=== PATIENT | female | born 1955 | race Caucasian/White ===

== ENCOUNTER → 2019-12-17 13:44 | Outpatient (CLI) | payer MEDICARE, MEDICAID, SELFPAY ==
--- NOTE | ~2019-12-17 | XR_ITS ---
EXAMINATION: XR ankle RT min 3V DATE: 12/17/2019 14:04 INDICATION: Right ankle pain. Fall. TECHNIQUE: 4 views of right ankle. were obtained. COMPARISON: None. FINDINGS: Bone alignment is normal. No fracture. The joint spaces are normal. There are enthesophytes at the posterior and plantar aspects of calcaneal tuberosity. There is ankle soft tissue swelling. IMPRESSION: 1. No fracture. Reviewed, dictated and finalized at location A. CTOR WEB IMPRESSION: 1. No fracture.
--- NOTE | ~2019-12-17 | XR_ITS ---
EXAMINATION: XR foot RT min 3V DATE: 12/17/2019 14:04 INDICATION: Right foot and ankle pain, initial encounter TECHNIQUE: Dorsoplantar, lateral, and 2 oblique views of the right foot were obtained. COMPARISON: None. FINDINGS: There is a small, linear heterotopic osseous density projecting just distal to the lateral malleolus on the dorsoplantar and oblique views of the foot with adjacent soft tissue swelling. No ac [place] osseous abnormality of the foot is identified. There is mild osteoarthritis at the first metatars ophalangeal joint and moderate osteoarthritis in multiple interphalangeal joints. IMPRESSION: 1. Findings consistent with small avulsion fracture of the lateral malleolus. 2. No acute osseous abnormality of the foot. Reviewed, dictated and finalized at location A. ICAL ANALYST
== END ==
PROVIDERS: PCP Physician Assistant; Visit Provider Physician Assistant
DX: R93.6 Abnormal findings on diagnostic imaging of limbs (principal); G89.11 Acute pain due to trauma; M25.571 Pain in right ankle and joints of right foot
CPT/HCPCS: 73610; 73630

== ENCOUNTER 2022-02-15 10:59 | Outpatient (CLI) | payer MEDICARE, MEDICAID, SELFPAY ==
--- NOTE | ~2022-02-15 | CT_ITS ---
EXAMINATION: CT lung screening DATE: 02/15/2022 11:16 INDICATION: CIGARETTE SMOKER TECHNIQUE: Computed tomography (CT) of the chest was performed without intravenous contrast. Addition al 3D reconstructions utilizing coronal maximum intensity projection (MIP) were performed. Automated exposure control and iterative reconstruction technique were employed. The dose-length product was 56 .73 mGy-cm. COMPARISON: 08/21/2019 FINDINGS: Mild to moderate emphysema. Calcified right middle lobe nodule along with calcified right hilar and m ediastinal lymph nodes consistent with old granulomatous disease. 5 mm centrally cavitary nodule in t he anterior segment of the right upper lobe. Mild atelectasis in the dependent aspect of the bilatera l lower lobes. Scattered mild mucous plugging within multiple bronchi in the right lower lobe with ad ditional minimal dependent mucus in the distal trachea. No other suspicious pulmonary nodules, pulmon reva edema, pneumonia or pleural effusion. Heart size is normal. Atherosclerotic coronary artery calci fication. Thoracic aorta is normal in caliber. No pathologically enlarged thoracic lymphadenopathy. M ild thoracic dextrocurvature with severe spondylosis. IMPRESSION: 1. Lung-RADS category 2: Benign appearance or behavior. Continue annual screening with noncontrast lo w-dose chest CT in 12 months. Reviewed, dictated and finalized at location B. IMPRESSION: 1. Lung-RADS category 2: Benign appearance or behavior. Continue annual screeni ng with noncontrast low-dose chest CT in 12 months.
== END 2022-02-15 11:00 | disposition home or self-care (01) ==
LOC: ANHIMG 11:03
PROVIDERS: PCP Physician Assistant; Visit Provider Physician Assistant
DX: F17.210 Nicotine dependence, cigarettes, uncomplicated (principal)
CPT/HCPCS: 71271

== ENCOUNTER → 2022-06-07 12:43 | Outpatient (CLI) | payer MEDICARE, MEDICAID, SELFPAY ==
--- NOTE | ~2022-06-07 | XR_ITS ---
EXAMINATION: XR hand RT min 3V INDICATION: Rheumatoid arthritis involving multiple sites TECHNIQUE: Three views of the right hand are obtained. COMPARISON: None available FINDINGS: There are subluxations at the first, second, and third metacarpophalangeal joints. No erosi ons are identified. There is moderate osteoarthritis involving multiple interphalangeal joints. There is no fracture. There appears to be mild soft tissue swelling surrounding the third and fourth proxi mal interphalangeal joints. IMPRESSION: 1. Mild subluxations at the first, second, and third metacarpophalangeal joints which can be seen in the setting of rheumatoid arthritis. Reviewed, dictated and finalized at location A.
--- NOTE | ~2022-06-07 | XR_ITS ---
EXAMINATION: XR shoulder LT min 2V INDICATION: Rheumatoid arthritis involving multiple sites TECHNIQUE: Four views of the left shoulder are submitted. COMPARISON: 10/16/2016 FINDINGS: Normal alignment. No fracture. There is mild osteoarthritis of the acromioclavicular and gl enohumeral joints. Soft tissues are unremarkable. IMPRESSION: 1. Osteoarthritis without acute osseous abnormality. Reviewed, dictated and finalized at location A.
--- NOTE | ~2022-06-07 | XR_ITS ---
EXAMINATION: XR hand LT min 3V INDICATION: Rheumatoid arthritis involving multiple sites TECHNIQUE: Three views of the left hand are obtained. COMPARISON: None available FINDINGS: There is no fracture, dislocation, or subluxation. There is moderate osteoarthritis involvi ng multiple interphalangeal joints. No erosions are identified. The soft tissues are unremarkable. IMPRESSION: 1. Polyarticular osteoarthritis without acute findings. Reviewed, dictated and finalized at location A.
--- NOTE | ~2022-06-07 | XR_ITS ---
EXAMINATION: XR shoulder RT min 2V INDICATION: Rheumatoid arthritis TECHNIQUE: Four views of the right shoulder are submitted. COMPARISON: 08/14/2014 FINDINGS: Normal alignment. No fracture. There is [id number] osteoarthritis of the acromioclavi cular and glenohumeral joints. Soft tissues are unremarkable. IMPRESSION: 1. Osteoarthritis without acute osseous abnormality. Reviewed, dictated and finalized at location A.
--- NOTE | ~2022-06-07 | XR_ITS ---
EXAMINATION: XR foot LT min 3V DATE: 06/07/2022 13:37 INDICATION: Rheumatoid arthritis involving multiple sites TECHNIQUE: Dorsoplantar, lateral, and 2 oblique views of the left foot were obtained. COMPARISON: None. FINDINGS: There is moderate osteoarthritis of multiple interphalangeal joints. No fracture is identif ied. No erosions are seen. There are multiple hammertoe deformities. The soft tissues are unremarkabl e. IMPRESSION: 1. Multiple hammertoe deformities which can be seen in the setting of rheumatoid arthritis. Reviewed, dictated and finalized at location A. IMPRESSION: 1. Multiple hammertoe deformities which can be seen in the setting of rheumatoi d arthritis.
--- NOTE | ~2022-06-07 | XR_ITS ---
EXAMINATION: XR foot RT min 3V DATE: 06/07/2022 13:36 INDICATION: Rheumatoid arthritis involving multiple sites TECHNIQUE: Dorsoplantar, lateral, and 2 oblique views of the right foot were obtained. COMPARISON: 12/17/2019 FINDINGS: There is moderate osteoarthritis of multiple interphalangeal joints. No fracture is identif ied. No erosions are seen. There are multiple hammertoe deformities. The soft tissues are unremarkabl e. IMPRESSION: 1. Multiple hammertoe deformities which can be seen in the setting of rheumatoid arthritis. Reviewed, dictated and finalized at location A. IMPRESSION: 1. Multiple hammertoe deformities which can be seen in the setting of rheumatoi d arthritis.
== END ==
PROVIDERS: PCP Physician Assistant Medical; Visit Provider Physician Assistant Medical
DX: M05.79 Rheumatoid arthritis with rheumatoid factor of multiple sites without organ or systems involvement (principal); M20.42 Other hammer toe(s) (acquired), left foot; M20.41 Other hammer toe(s) (acquired), right foot; M19.042 Primary osteoarthritis, left hand; M19.012 Primary osteoarthritis, left shoulder; M19.011 Primary osteoarthritis, right shoulder
CPT/HCPCS: 73030; 73130; 73630

== ENCOUNTER 2022-09-04 09:03 | Outpatient (CLI) | payer MEDICARE, MEDICAID, SELFPAY ==
--- NOTE | ~2022-09-04 | DEXA_ITS ---
Bone Density Report Name: MIRIAM ROWE Age: 67 Sex: Female Ethnicity: White Date of : 1955 Indication: postmenopausal; screening for osteoporosis; height loss; rheumatoid arthritis; Referring Provider: ZOË, DENIS Study: Bone densitometry was performed. Exam Date: September 04, 2022 Accession number: [id number] Bone Density: Region BMD T-score Z-score Classification AP Spine(L1, L4) 0.880 -1.4 0.6 Osteopenia Femoral Neck (Left) 0.608 -2.2 -0.5 Osteopenia Total Hip (Left) 0.682 -2.1 -0.7 Osteopenia Femoral Neck (Right) 0.644 -1.8 -0.1 Osteopenia Total Hip (Right) 0.723 -1.8 -0.4 Osteopenia Total Hip Mean 0.702 -2.0 -0.6 Osteopenia World Health Organization criteria for BMD impression classify patients as: Normal (T-score at or above -1.0), Osteopenia (T-score between -1.0 and -2.5), or Osteoporosis (T-score at or below -2.5). 10-year Fracture Risk: FRAX not reported because: Treated for osteoporosis Clinical Information Provided by Patient: Smokes Has rheumatoid arthritis Is being treated for osteoporosis Has used the following medications: Vitamin D, Calcium Patient maximum height was 62 Menopause Age: 45 No regular weight bearing exercise Drinks caffeinated beverages Onset of menses at age 12 Number of children 3 Impression: The patient has low bone mass, based on the Left Femoral Neck T-score. The patient has risk factors, including: smoking. Discussion: It is important to ask patients whether they are taking their medications and to encourage continued and appropriate compliance with their osteoporosis therapies to reduce fracture risk. It is also important to review their risk factors and encourage appropriate calcium and vitamin D intakes, exercise, fall prevention and other lifestyle measures. Follow-Up: Consider a repeat BMD and Vertebral Fracture Assessment (VFA) exam in 2 years or sooner if medically necessary, to reassess this patient's status. Reported by: JULIAN on 09/04/2022 10:01:00 AM. Reviewed, dictated and finalized at location AStalin PAINTER
== END 2022-09-04 09:04 | disposition home or self-care (01) ==
PROVIDERS: PCP Physician Assistant Medical; Visit Provider Physician Assistant Medical
DX: M05.79 Rheumatoid arthritis with rheumatoid factor of multiple sites without organ or systems involvement (principal); M81.8 Other osteoporosis without current pathological fracture; M85.88 Other specified disorders of bone density and structure, other site; M85.852 Other specified disorders of bone density and structure, left thigh; M85.851 Other specified disorders of bone density and structure, right thigh
CPT/HCPCS: 77080

== ENCOUNTER 2022-09-04 09:03 | Outpatient (CLI) | payer MEDICARE, MEDICAID, SELFPAY ==
--- NOTE | ~2022-09-04 | MM_ITS ---
EXAMINATION: MM screening [facility] BI w jose martin HISTORY: Screening mammogram TECHNIQUE: Craniocaudal and mediolateral oblique 3-D tomosynthesis images were obtained and synthetic 2-D images were generated. CAD analysis was submitted and interpreted. COMPARISON: 07/29/2016, 03/2014 bilateral screening mammogram examinations BREAST PARENCHYMAL COMPOSITION: There are scattered areas of fibroglandular density. FINDINGS: There is a biopsy marker on the right; history of prior benign right breast biopsy. There i s no evidence of suspicious mass, calcification, or architectural distortion to suggest malignancy in either breast. There has been no suspicious interval change. IMPRESSION: 1. No mammographic evidence of malignancy. 2. Recommend routine screening mammography in one year. BI-RADS Category 1: Negative Reviewed, dictated and finalized at location A. AL CLERK
== END 2022-09-04 09:04 | disposition home or self-care (01) ==
PROVIDERS: PCP Physician Assistant Medical; Visit Provider Physician Assistant
DX: Z12.31 Encounter for screening mammogram for malignant neoplasm of breast (principal)
CPT/HCPCS: 77063; 77067; 77080

== ENCOUNTER → 2024-04-16 16:29 | Outpatient (CLI) | payer MEDICARE, MEDICAID, SELFPAY ==
--- NOTE | ~2024-04-16 | XR_ITS ---
EXAMINATION: XR hip LT 2V w AP pelvis, XR femur LT min 2V DATE: 04/16/2024 17:06 INDICATION: Left sided low back pain and left hip and leg pain. TECHNIQUE: 1. Anteroposterior view of the pelvis and anteroposterior and frog-leg lateral views of the left hip were obtained. 2. AP and lateral views of the left femur were obtained on overlapping proximal and distal images. COMPARISON: None. FINDINGS: Alignment is normal. No fracture. Mild bilateral sacroiliac osteoarthritis. Bilateral hip joint space s appear relatively preserved. There is tiny marginal osteophytes about the right femoral head consis tent with minimal osteoarthritis. There are also small marginal osteophytes about the medial compartm ent of the left knee with relatively preserved joint space on nonweightbearing imaging. Chondrocalcin osis at the medial lateral compartments of the left knee. No left knee joint effusion. Bone islands a t the left atrium and right supra-acetabular region. At least mild spondylosis of the visualized lowe r lumbar spine. Aortobiiliac endoluminal stent graft. IMPRESSION: 1. Mild periarticular osteoarthritis at the bilateral sacroiliac, right hip and left knee joints. No acute osseous abnormality. Reviewed, dictated and finalized at location B. IMPRESSION: 1. Mild periarticular osteoarthritis at the bilateral sacroiliac, right hip and left knee joints. No acute osseous abnormality.
== END ==
PROVIDERS: PCP Physician Assistant; Visit Provider Physician Assistant
DX: M16.12 Unilateral primary osteoarthritis, left hip (principal); M53.3 Sacrococcygeal disorders, not elsewhere classified
CPT/HCPCS: 73502; 73552

== ENCOUNTER → 2025-07-23 10:18 | Outpatient (CLI) | payer MEDICARE, SELFPAY ==
--- NOTE | ~2025-07-23 | XR_ITS ---
XR thoracic spine 3V Indication: Back pain, upper right side, months no trauma or injury Comparison: None Findings: Moderate loss of vertebral height throughout. No fracture or subluxation. Severe loss of disc height throughout. Soft tissues unremarkable Impression: No acute abnormality. Reviewed, dictated and finalized at location P. Impression: No acute abnormality.
--- NOTE | ~2025-07-23 | XR_ITS ---
XR lumbar spine 2-3V Indication: LBP center/both sides months no trauma or injury Comparison: None Findings: Levoconvex scoliosis. Moderate loss of vertebral height throughout. There are remote compression fractures of L4 L3 and L2 with loss of height 37. Grade 1 anterolisthesis of L4 on L5. Moderate loss of disc height throughout. Endovascular stent noted in the soft tissues. Impression: No acute abnormality. Reviewed, dictated and finalized at location P. Impression: No acute abnormality.
== END ==
LOC: EXPCRAD 10:30
PROVIDERS: PCP Physician Assistant; Visit Provider Physician Assistant
DX: M54.50 Low back pain, unspecified (principal)
CPT/HCPCS: 72072; 72100

== ENCOUNTER 2025-08-05 15:07 | Outpatient (CLI) | payer MEDICARE, MEDICAID, SELFPAY ==
--- NOTE | ~2025-08-05 | DEXA_ITS ---
Bone Density Report Name: MIRIAM ROWE Age: 70 Sex: Female Ethnicity: White Date of : 1955 Indication: osteopenia; monitoring treatment; height loss; rheumatoid arthritis; Referring Provider: ZOË, DENIS Study: Bone densitometry was performed. Exam Date: August 05, 2025 Accession number: [id number] Bone Density: Region BMD T-score Z-score Classification AP Spine(L1-L4) 0.920 -1.2 1.0 Osteopenia Femoral Neck (Left) 0.721 -1.2 0.7 Osteopenia Total Hip (Left) 0.766 -1.4 0.1 Osteopenia Femoral Neck (Right) 0.643 -1.9 0.0 Osteopenia Total Hip (Right) 0.770 -1.4 0.2 Osteopenia Total Hip Mean 0.768 -1.4 0.2 Osteopenia World Health Organization criteria for BMD impression classify patients as: Normal (T-score at or above -1.0), Osteopenia (T-score between -1.0 and -2.5), or Osteoporosis (T-score at or below -2.5). 10-year Fracture Risk: FRAX not reported because: Treated for osteoporosis Previous Exams: Region Exam Age BMD T-score BMD Change BMD Change Date g/cm2 vs Baseline vs Previous Total Hip(Left) 08/05/2025 70 0.766 -1.4 0.085 (12.4%)# 0.085 (12.4%)# 09/04/2022 67 0.682 -2.1 0.000 (0.0%) -0.052 (-7.1%) 07/29/2016 61 0.734 -1.7 0.052 (7.7%)# 0.052 (7.7%)# 03/27/2014 59 0.682 -2.1 Total Hip(Right) 08/05/2025 70 0.770 -1.4 0.035 (4.7%)# 0.046 (6.4%)# 09/04/2022 67 0.723 -1.8 -0.012 (-1.6%) -0.032 (-4.2%) 07/29/2016 61 0.755 -1.5 0.020 (2.8%)# 0.020 (2.8%)# 03/27/2014 59 0.735 -1.7 *Denotes significance at 95% confidence level, LSC for Total Hip = 0.027 g/cm2 # Denotes dissimilar scan types or analysis methods Clinical Information Provided by Patient: Smokes Has rheumatoid arthritis Is being treated for osteoporosis Has used the following medications: Vitamin D, Calcium Patient maximum height was 62 Menopause Age: 45 No regular weight bearing exercise Drinks caffeinated beverages Onset of menses at age 12 Number of children 3 Impression: The patient has low bone mass, based on the Right Femoral Neck T-score. The patient has risk factors, including: smoking. No significant bone loss was observed. Discussion: PATIENT UNDER TREATMENT WITH NO SIGNIFICANT BMD LOSS SINCE LAST EXAM. In an untreated patient, BMD typically declines with age. A lack of decline or gain is usually a sign that treatment is efficacious and fracture risk is reduced. It is important to ask patients whether they are taking their medications and to encourage continued and appropriate compliance with their osteoporosis therapies to reduce fracture risk. It is also important to review their risk factors and encourage appropriate calcium and vitamin D intakes, exercise, fall prevention and other lifestyle measures. Follow-Up: Consider a repeat BMD and Vertebral Fracture Assessment (VFA) exam in 2 years or sooner if medically necessary, to reassess this patient's status. Reported by: JEAN PIERRE on 08/05/2025 3:45:00 PM. Reviewed, dictated and finalized at location A.
--- OUTSIDE RECORDS SUMMARY | 2025-08-05 15:54 | XMS_ITS | Encounter Summary ---
Author Organization [facility] Healthcare Address [address] [place] [address] Care Team Providers Care Communication Spec Name Role Phone Tigist Schroeder Primary Care Provider [phone] Arian Robertson MD Unavailable [phone] Truman Lopez MD Unavailable [phone] Encounter Details Date Type Department Care Team (Late st Contact Info) Description 03/20/2025 Orders Only [facility] Management [address] [place] [id number] Tigist Schroeder PA [address] [place] [address] Social History Tobacco Use Types Packs/Day Years Used Date Smoking Tobacco: Every Day Cigarettes 0.9 51.4 Started: 03/22/1974 Vaping Started: 03/24 Smokeless Tobacco: Never Alcohol Use Standard Drinks/Week Comments Not Currently 0 (1 standard drink = 0.6 oz pur e alcohol) [facility] Utilities Answer Date Recorded In the past 12 months has e electric, gas, oil, or water company threatened to shut off services in your home? No 04/20/2024 Social Connection and Isolation Panel Answer Date Recorded In a typical week, how many times do you talk on the phone with family, friends, or neighbors? More than three times a week 04/20/2024 How often do you get togethe r with friends or relatives? More than three times a week 04/20/2024 How often do you attend chur ch or temple services? 1 to 4 times per year 04/20/2024 Do you belong to any clubs o r organizations such as catholic groups, unions, fraternal or athletic groups, or school groups? No 04/20/2024 How often do you attend meet ings of the clubs or organizations you belong to? Never 04/20/2024 Are you , , di vorced, , never , or living with a partner? 04/20/2024 AUDIT-C Answer Date Recorded Q1: How often do you have a drink containing alcohol? Never 01/16/2025 Q2: How many drinks containi ng alcohol do you have on a typical day when you are drinking? Patient does not drink Q3: How often do you have si x or more drinks on one occasion? Never 01/16/2025 Overall Financial Resource Strain (CARDIA) Answe r Date Recorded How hard is it for you to pa y for the very basics like food, housing, medical care, and heating? Not hard at all 04/20/2024 PHQ-2 Answer Date Recorded PHQ-2 Total Score (If total score is 3 or more points, staff should administer the PHQ-9) 0 01/16/2025 Hunger Vital Sign Answer Date Recorded Within the past 12 months, y ou worried that your food would run out before you got the money to buy more. Never true 04/20/20 24 Within the past 12 months, t he food you bought just didn't last and you didn't have money to get more. Never true 04/20/2024 PRAPARE - Transportation Answer Date Re corded In the past 12 months, has l ack of transportation kept you from medical appointments or from getting medications? No 03/25 In the past 12 months, has l ack of transportation kept you from meetings, work, or from getting things needed for daily living? No 04/20/2024 PHQ-9 Answer Date Recorded PHQ-9 Total Score 1 04/20/2024 Housing Stability Vital Sign Answer Roger e Recorded In the last 12 months, was t here a time when you were not able to pay the mortgage or rent on time? No 04/20/2024 In the past 12 months, how m any times have you moved where you were living? 0 04/20/2024 At any time in the past 12 m onths, were you homeless or living in a halfway (including now)? No 04/20/2024 Personal Safety Answer Date Recorded Have you ever been in or are you currently in a harmful physical or emotional relationship or is someone making you feel afraid or unsafe? 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 Gender Identity Not on file Sexual Orientation Not on file documented as of this encounter Plan of Treatment Not on file documented as of this encounter Procedures Procedure Name Priority Date/Time Associated Diagnosis Comments SCAN - LABS 03/20/2025 documented in this encounter Results * SCAN - LABS (03/20/2025) us Tigist VLEASQUEZ Final Resu lt documented in this encounter Visit Diagnoses Not on filedocumented in this encounter Care Teams Communication Spec Relationship Specialty Start Date End Date Tigist Schroeder PA [address] [place] [address] PCP - General Internal Medicine 07/19/19 Arian Robertson MD [address] [place] [address] Consulting Physician Rheumatology 07/19/22 [place] [id number] [place] [address] Consulting Physician Vascular Surgery 03/29/24 documented as of this encounter
--- OUTSIDE RECORDS SUMMARY | 2025-08-05 15:54 | XMS_ITS | Encounter Summary ---
Author Organization [facility] Address [address] [place] [address] Phone Care Team Providers Care Mrb Engineer Name Role Phone Tigits Schroeder Primary Care Provider [phone] Arian Robertson MD Unavailable Truman Lopez MD Unavailable [phone] Encounter Details Date Type Department Care Team (Latest Contact Info) Description 06/26/2025 Results Follow-Up [facility] [address] [place] [address] Rizwana Marie PA [address] [place] [address] CBC with auto differential, Comprehensive metabolic panel, Erythrocyte sedimentation rate, Additional followed-up results: 2 Social History Tobacco Use Types Packs/Day Years Used Date Smoking Tobacco: Every Day Cigarettes 0.9 51.4 Started: 03/22/1974 Vaping Started: 03/24 Smokeless Tobacco: Never Alcohol Use Standard Drinks/Week Comments Not Currently 0 (1 standard drink = 0.6 oz pur e alcohol) [facility] Utilities Answer Date Recorded In the past 12 months has Sp[employer], gas, oil, or water company threatened to [...] often do you attend chur ch or hinduism services? 1 to 4 times per year 04/20/2024 Do you belong to any clubs o r organizations such as faith groups, unions, fraternal or athletic groups, or [...] any time in the past 12 m [facility], were you homeless or living in a alf (including now)? No 04/20/2024 Personal Safety Answer Date Recorded Have you ever been in or are you currently in a harmful physical or emotional relationship or is someone making you feel afraid or unsafe? 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 Gender Identity Not on file Sexual Orientation Not on file documented as of this encounter Plan of Treatment Not on file documented as of this encounter Visit Diagnoses Not on filedocumented in this encounter Care Teams Mrb Engineer Relationship Specialty Start Date End Date Tigist Schroeder PA [address] [place] [address] PCP - General Internal Medicine 07/19/19 Arian Robertson MD [address] [place] [address] Consulting Physician Rheumatology 07/19/22 [place] [id number] [facility] [address] [place] [address] Consulting Physician Vascular Surgery 03/29/24 documented as of this encounter
--- OUTSIDE RECORDS SUMMARY | 2025-08-05 15:54 | XMS_ITS | Clinical Summary ---
Author Organization [facility] Address [address] [place] [address] Care Team Providers Care Soiled Linen Distributor Name Role Phone Ping Serrato MD Primary Care Provider [phone] Source Comments [facility],non-owned Affiliates and Associated Physician Practices is amultiple site organization consisting of ambulatory clinics and hospital sitesin [place], [place], [place] and [place]. This disclosure is being madepursuant to the Care Everywhere program and may not contain all information available regarding this patient. Last updated 18.[facility] Allergies Active Allergy Reactions Criticality Noted Date Comments Codeine Nausea and/or Vomiting,Rash Medium 10/30/2012 rash Enbrel Other Low 10/29/2015 Severe headaches; local injection site reactions Sulfamethoxazole W-Trimethoprim Skin Reactions Medium 09/03/2014 Red, raised welts-blister like Medications * Be aware that medications may not be up to date on this document. Alwaysverify current medications with the patient. Calcium Carb-Cholecalcife rol (CALCIUM + D3 PO) Take 1 tablet by mouth Active famotidine (PEPCID) 40 MG tablet Take 40 mg by mouth Active simvastatin (ZOCOR) 40 MG tablet Take 40 mg by mouth Active HYDROcodone-aceta minophen (NORCO) 7.5-325 MG tablet Take 1 tablet by mouth every 6 hours as needed 0 8 Active DULoxetine (CYMBALTA) 30 MG capsuleIndication s:Rheumatoid arthritis involving multiple sites with positive rheumatoid factor (HCC),Age-related osteoporosis without current pathological fracture,Vitamin D deficiency,Curren t chronic use of systemic steroids,Osteopor osis, unspecified osteoporosis type, unspecified pathological fracture presence,Rotator cuff arthropathy of left shoulder,Fibromya lgia Take 1 capsule by mouth once daily 30 capsule 3 9 Active tofacitinib 24hr (XELJANZ XR) 11 MG tablet Take 1 tablet by mouth once daily 30 tablet 4 9 Active predniSONE (DELTASONE) 5 MG tablet Take 1 tablet by mouth once daily 30 tablet 4 9 Active leflunomide (ARAVA) 20 MG tablet Take 1 tablet by mouth once daily 30 tablet 4 9 Active vitamin D, ergocalciferol, (DRISDOL) 49666 units capsule Take 1 capsule by mouth every 7 days 12 capsule 1 9 Active cyclobenzaprine (FLEXERIL) 5 MG tablet Take 1 tablet by mouth 3 times daily as needed 90 tablet 3 9 Active Active Problems Problem Noted Date Diagnosed Date Acute memory impairment 07/24/2019 Body mass index (BMI) of 19.0 to 19.9 in adult 1 Overview (08/20/2019): Last Assessment & Plan: Weight/BMI is in low range. Continue healthy lifestyle to maintain and try to increase Cigarette smoker 07/24/2019 Overview (08/20/2019): Last Assessment & Plan: Encouraged smoking cessation. Discussed 3 minutes. Reviewed options for assistance with cessation. 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 Pt declines assistance at this time but may contact the office at anytime for further help as they desire. Gastroesophageal reflux disease without esophagi tis 07/24/2019 Overview (08/20/2019): Last Assessment & Plan: Continue PPI prn Hyperglycemia 07/24/2019 Overview (08/20/2019): Last Assessment & Plan: Pre-diabetes is a precursor to Dm. Stressed importance of working on diet (decrease your simple sugars and one carbohydrate with each meal) and increase you exercise to achieve weight loss and this will help prevent you from progressing to diabetes. Lung nodule 07/24/2019 Overview (08/20/2019): LDCT 06/2017: 4mm nodule. Need to repeat 06/2018 Last Assessment & Plan: Need repeat CT to monitor the lung nodule. Encouraged smoking cessation. Not ready at this point. Mixed hyperlipidemia 07/24/2019 Overview (08/20/2019): Last Assessment & Plan: Encouraged patient to continue low fat/low chol diet. Continue exercise. Increase good fats in the diet. Monitor labs as needed. RA (rheumatoid arthritis) 07/24/2019 Overview (08/20/2019): Last Assessment & Plan: Continue with Dr. Chavis's replacement for now. Patient would like to find provider at [facility] so her care is in one system. Will make referral to Dr. Rob or associate. Osteopenia of multiple sites 07/24/2019 Overview (08/20/2019): Last Assessment & Plan: Last DXA fall of 2017. Still osteopenic. Needs Prolia. Hasn't been able to get coverage with her previous insurance. Will try again. Vitamin D deficiency 07/24/2019 Overview (08/20/2019): Last Assessment & Plan: supplement Primary osteoarthritis of both shoulders 019 Overview (08/20/2019): Last Assessment & Plan: Severe. Followup with Ortho as has had injection with some relieft in the past Fibromyalgia 07/24/2018 Rotator cuff arthropathy 07/24/2018 Exertional dyspnea 12/28/2017 Emphysema lung 12/28/2017 Age-related osteoporosis wit hout current pathological fracture 08/07/2015 Rheumatoid arthritis 08/07/2015 Vitamin D deficiency 08/07/2015 Current chronic use of systemic steroids 015 Osteoporosis 06/17/2015 Immunizations Immunization Administration Dates Next Due INFLUENZA VACCINE 10/12/2017,10/29/2015 INFLUENZA VACCINE, HIGH-DOSE , QUADR. (FLUZONE HIGH-DOSE QUADRIVALENT; 65Y+), 0.7 ML (HD-IIV4) 07/31/2019 INFLUENZA VACCINE, QUADR. (F LUZONE; FLULAVAL; FLUARIX; AFLURIA QUADRIVALENT; 6MO+), 0.5 ML (IIV4) 08/16/2018,08/11/2016 PNEUMOCOCCAL PPSV23 12/28/2017 TDAP (7yrs+) 04/20/2016 Family History Medical History Relation Name Comments Cancer - Prostate Brother 1 55 Cancer Father 42 Psoriasis Other 1 77 aunt Arthritis - Rheumatoid Other 2 75 aunt Other Son 1 47 ITP Inflammatory Bowel Disease Neg Hx Lupus Neg Hx Thyroid Disease Neg Hx Relation Name Status Comments Brother 1 55 Brother 2 64 Alive Brother 3 52 Alive Daughter 45 Alive Father 42 Maternal Grandmother 97 Mother 30 KILLED BY A [employer] STUDY ASSISTANT Other 1 77 Alive Other 2 75 Alive Son 1 47 Alive Son 2 42 Alive Social History Tobacco Use Types Packs/Day Years Used Date Smoking Tobacco: Every Day Cigarettes 0.5 40 Smokeless Tobacco: Never Tobacco Cessation:Ready to Q uit: No; Counseling Given: Yes Alcohol Use Standard Drinks/Week Comments No 0 (1 standard drink = 0.6 oz pur e alcohol) Comments No Sex and Gender Information Value Date Recorded Sex Assigned at Not on file Legal Sex Female 5:12 PM VALUE ADVISOR Gender Identity Not on file Sexual Orientation Not on file Last Filed Vital Signs Vital Sign Reading Time Taken Comments Blood Pressure 136/77 09/06/2019 9:13 AM VALUE ADVISOR Pulse 70 09/06/2019 9:13 AM VALUE ADVISOR Temperature 36.4 C (97.5 F) 09/06/2019 9:13 AM VALUE ADVISOR Respiratory Rate 16 09/06/2019 9:13 AM VALUE ADVISOR Oxygen Saturation 94% 09/06/2019 9:13 AM VALUE ADVISOR Inhaled Oxygen Concentration - - Weight 45.2 kg (99 lb 9.6 oz) 09/06/2019 9:13 AM VALUE ADVISOR Height 152.4 cm (5') 09/06/2019 9:13 AM VALUE ADVISOR Body Mass Index 19.45 09/06/2019 9:13 AM VALUE ADVISOR Plan of Treatment Health Maintenance Due Date Last Done Comments BONE DENSITY TESTING 1954 COLOGUARD (AGES 45-75) - COLON CA SCREENING 1954 COLON MONITORING 1954 COLONOSCOPY - COLON CA SCREENING 1954 CT COLONOGRAPHY - COLON CA SCREENING 1954 Colorectal Cancer Screening 1954 FIT - COLON CA SCREENING 1954 FLEX SIG - COLON CA SCREENING 1954 MAMMOGRAM 1954 ZOSTER VACCINE (1 of 2) 01/27/2004 Respiratory Syncytial Virus (RSV) Vaccine Pt: or over 60 yrs (1 - Risk 60-74 years 1-dose series) 2014 PNEUMOCOCCAL VACCINE 50+ (2 of 2 - PCV) 12/28/2018 12/28/2017 DEPRESSION SCREENING 10/24/2024 COVID-19 VACCINE (1 - season) 2025 INFLUENZA VACCINE (#1) 2025 9, 08/16/2018, 10/12/2017, Additional history exists DTAP/TDAP/TD VACCINES (2 - Td or Tdap) 04/20/2026 04/20/2016 HEPATITIS C SCREENING Completed 09/05/2014 HEPATITIS B VACCINE Aged Out No longe r eligible based on patient's age to complete this topic HIB VACCINE Aged Out No longer eligi ble based on patient's age to complete this topic HPV VACCINE Aged Out No longer eligi ble based on patient's age to complete this topic MENINGOCOCCAL (Group B) VACCINE SHARED DECISION-MAKING Aged Out No longer eligible based on patient's age to complete this topic MENINGOCOCCAL GROUPS A/C/Y/W VACCINE Aged Out No longer eligible based on patient's age to complete this topic Procedures Procedure Name Priority Date/Time Associated Diagnosis Comments HEPATITIS C ANTIBODY Routine 09/05/2014 10:20 AM VALUE ADVISOR from Last 3 Months or Most Recently Relevant to Health Maintenance Results * HEPATITIS C ANTIBODY (09/05/2014 10:20 AM VALUE ADVISOR) Hepatitis C Antibody NON-REACTI VE NON-REACT [facility]) Signal/Cutoff 0.03 <1.00 [facility] Comment: Test Performed at: [facility] [id number] [place] [address] MARJORIE MATTHEWS DO,MPH Blood specimen (specimen) BLOOD SPECIMEN / Unknown 09/05/2014 10:20 AM VALUE ADVISOR 09/05/2014 10:21 AM VALUE ADVISOR us Tari Chavis MD LAB - CHEMISTRY ORDERABLE S Edited Result - Final [facility] [id number] [place], [place] [id number] [place] [address] from Last 3 Months or Most Recently Relevant to Health Maintenance Insurance MEDICARE MEDICAID - OUT OF STATE MEDICARE MEDICAID - [place] Care Teams Soiled Linen Distributor Relationship Specialty Start Date End Date Ping Serrato MD [address] [facility] [address] [place] [address] PCP - General 03/01/18
--- OUTSIDE RECORDS SUMMARY | 2025-08-05 15:55 | XMS_ITS | Clinical Summary ---
Author Organization [facility] [place] Address [address] [place] [address] Care Team Providers Care Wood Sash And Frame Carpenter Name Role Phone Tigist Schroeder Primary Care Provider [phone] Arian Robertson MD Unavailable [phone] Truman Jorge MD Unavailable [phone] Allergies Active Allergy Reactions Criticality Noted Date Comments Codeine Nausea & Vomiting Low 06/18/2015 N/V Codeine Phosphate Rash Medium 07/24/2019 rash Etanercept Other (See comments) High 10/30/2012 Severe headaches; local injection site reactions Methotrexate Stomach upset Low 06/18/2015 Stomach/GI Upset Sulfa (Sulfonamide Antibiotics) Other (See comments) Low 06/18/2015 Redness and Swelling Sulfamethoxazole-Trimet hoprim Rash Medium 09/03/2014 rash Red, raised welts-blister like Medications leflunomide (ARAVA) 20 mg tablet Take 1 tablet by mouth once daily 90 tablet 1 023 Active Additional Information Patient not taking.Reported on 07/19/2025 gabapentin (NEURONTIN) 100 mg capsule TAKE 2 CAPSULES BY MOUTH NIGHTLY 180 capsule 1 023 Active albuterol HFA (ProAir HFA) 90 mcg/actuation inhaler Inhale 2 puffs every 4 (four) hours as needed for wheezing or shortness of breath 8.5 g 2 023 Active aspirin 81 mg enteric coated tablet Take 1 tablet (81 mg total) by mouth daily 30 tablet [address] (CYMBALTA) 60 mg capsule Take 1 capsule (60 mg total) by mouth nightly 024 Active rivaroxaban (XARELTO) 20 mg tablet Take 1 tablet (20 mg total) by mouth daily with dinner 90 tablet 3 024 Active budesonide-glycop yr-formoterol (Breztri Aerosphere) 160-9-4.8 mcg/actuation inhaler Inhale 2 puffs 2 (two) times a day 3 each 1 024 Active revefenacin 175 mcg/3 mL solution for nebulizationIndic ations:Chronic obstructive pulmonary disease, unspecified COPD type (HCC) Inhale 1 puff daily 90 mL 6 025 Active omeprazole (PriLOSEC) 40 mg capsule Take 1 capsule (40 mg total) by mouth daily 90 capsule 2 025 Active cyclobenzaprine (FLEXERIL) 10 mg tablet Take 0.5 tablets (5 mg total) by mouth 3 (three) times a day as needed for muscle spasms 90 tablet 025 Active rosuvastatin (CRESTOR) 10 mg tabletIndications :Mixed hyperlipidemia Take 1 tablet by mouth once daily 100 tablet 1 025 Active fluticasone propionate (FLONASE) 50 mcg/actuation nasal sprayIndications: Acute non-recurrent pansinusitis Administer 2 sprays into each nostril daily 48 g 025 Active predniSONE (DELTASONE) 5 mg tablet Take 1.5 tablets (7.5 mg) by mouth daily 135 tablet 1 025 Active methotrexate, PF, 10 mg/0.2 mL auto-injectorIndi cations:Rheumatoi d Arthritis Inject 10 mg under the skin every 7 days 4 mL 3 025 Active denosumab (PROLIA) 60 mg/mL syringeIndication s:postmenopausal osteoporosis and high fracture risk Inject 1 mL (60 mg total) under the skin every 6 (six) months 1 mL 2 09/05/2 025 Active ergocalciferol (VITAMIN D) 50,000 unit capsule Take 1 capsule (50,000 Units total) by mouth once a week 8 capsule 025 Active HYDROcodone-aceta minophen (NORCO) 10-325 mg per tabletIndications :Pain Take 1 tablet by mouth every 6 (six) hours as needed for pain 120 tablet 025 Active ergocalciferol (VITAMIN D) 50,000 unit capsule TAKE 1 CAPSULE BY MOUTH EVERY 14 DAYS 6 capsule 1 024 2024 Discontinued certolizumab pegol (CIMZIA) 400 mg (200 mg x 2) kitIndications:Rh eumatoid Arthritis Inject 400mg SQ on week 0, 2, 4 and then every 4 weeks 6 each 3 024 2024 Discontinued HYDROcodone-aceta minophen (NORCO) 7.5-325 mg per tabletIndications :Pain,severe Rheumatoid arthritis Take 1 tablet by mouth every 6 (six) hours as needed for pain 120 tablet 025 2024 Discontinued HYDROcodone-aceta minophen (NORCO) 10-325 mg per tabletIndications :Pain Take 1 tablet by mouth every 6 (six) hours as needed for pain 025 2024 Discontinued(Marshal nunez) Active Problems Problem Noted Date Diagnosed Date Chronic pain syndrome 07/29/2025 COPD (chronic obstructive pulmonary disease) 03/2025 Strain of right hamstring 06/25/2025 Assessment & Plan (06/25/2025 2:36 PM CDT): Reports 2 weeks of pain to the posterolateral aspect of her right knee affecting her ability to sit down/get up from seated position and stand/walk for prolonged periods of time. Initially pain was radiating from her buttock into the back of her leg and was sharper in quality - now more of a dull ache. She has tried alternating ice/heat to the area. There is ttp along the inner aspect of the biceps femoris tendon bed. No signs of infection or DVT. Recommend heat application followed by gentle extension stretches and close monitoring. Medicare annual wellness visit, subsequent 01/28 Assessment & Plan (01/28/2025 12:43 AM CDT): Encouraged healthy lifestyle, good nutrition and exercise. Encouraged Calcium and Vitamin D and weight bearing exercise for bone health. Reviewed immunizations. Reviewed age appropirate screenings. Medicare Wellness Documentation is completed within the chart Breast cancer screening by mammogram 01/28/2025 Assessment & Plan (01/28/2025 12:43 AM CDT): Mammogram order provided Frailty 09/27/2024 Assessment & Plan (01/28/2025 12:40 AM CDT): Frailty due to her longstanding rheumatoid arthritis multiple medications. Assessment & Plan (09/27/2024 1:06 PM NUTRITION TECH): Patient is continues to show more fraility She has not understanding that her rheumatoid arthritis is continuing to progress and that she is beginning to run out of affective treatment options. Will continue to work on pain control and follow with [facility]. Continue with osteoporosis treatment to try to avoid fracture and decrease that risk. Will seek assistance from pulmonology for progressive pulmonary symptoms. Multiple subsolid lung nodul es greater than 6 mm in diameter 09/27/2024 Assessment & Plan (09/27/2024 1:07 PM NUTRITION TECH): Patient had CT in January of 2024 that showed bronchiectasis and small nodules in the right middle lobe and lingula probably related to infection. Radiology recommended repeat CT chest in 3-6 months. Will get this ordered At high risk for fracture 08/16/2024 Chronic fatigue 06/10/2024 Assessment & Plan (06/10/2024 7:39 PM CDT): Chronic fatigue. Has recently had labs that appeared pretty stable. If symptoms persist may need to repeat a CBC. No active signs of bleeding today. Her symptoms probably are still multifocal. She has severe rheumatoid arthritis. She is status post multiple vascular surgeries in the last month or 2. Will check an echo just to rule out any heart conditions due to her rheumatologic state and follow up pending those results. Chronic SI joint pain 06/10/2024 Assessment & Plan (06/10/2024 7:47 PM CDT): Patient has progressive and debilitating rheumatoid arthritis. She is undergoing treatment. She also has severe osteoarthritis and has done well with steroid treatments of the knees and shoulders as well as the hand. She is having persistent back symptoms. Will refer to Destini Og to see if there is any local injections that may give her additional relief for the pain she is experiencing. Referral be placed KWONG (dyspnea on exertion) 06/10/2024 Assessment & Plan (06/10/2024 7:48 PM CDT): Patient is noticing increased shortness of breath and fatigue. She is a known smoker and so has known COPD but will get an echo due to her severe rheumatologic concerns as well as these symptoms seem to be progressing to rule out cardiac contribution. 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 She developed thrombosis of the left iliac limb periods she underwent emergent thrombectomy of the left iliac limb on 04/19 due to a ischemic foot. Patient tolerated the procedure well. She will follow-up with surgeon on the . She is tolerating his Xarelto 10 mg without difficulty. SOB (shortness of breath) 04/18/2024 Assessment & Plan (09/27/2024 1:05 PM NUTRITION TECH): Patient has been a long-time smoker. Imaging has shown emphysema and she is noting increased SOB. She had a chest CT abdomen and pelvis when we diagnosed her aneurysm that needed immediate repair in January. There was bronchiectasis as well as small nodules in the right middle lobe and possible infection. She was to repeat it in 3-6 months. Will get this ordered to follow-up. She was not able to tolerate the breasts tree. Encouraged her to try again. Will refer to pulmonology for assistance. Assessment & Plan (04/18/2024 5:04 PM CDT): Patient is status post triple a repair on 03/28/2024. She presents today with shortness of breaths as well as a foot on the left that seems to be cooler and a more bluish hue in the morning. I am unable to palpate pulses in the office. She is also short of breath. PERC rule for pulmonary embolism can not rule it out with her being over 50yo, heart rate over 100 as well as history of recent vascular surgery. WELLS Criteria is 3pts Discussed with patient that I would recommend additional workup of her shortness of breath to rule out infection versus pulmonary embolism versus COPD exacerbation versus other etiology. Advised with it being the end of the day it is difficult to get this imaging done. She would also benefit from additional workup for this cold foot that I am unable to obtain pulses on based on her recent surgery. Encouraged her to go to the ER for further evaluation. She is in agreement with the plan and plans to go to shallow and will probably have her son take her immediately. Will await ER recommendation Drug-induced constipation 04/18/2024 Assessment & Plan (05/06/2024 11:57 PM CDT): Patient has struggled with drug-induced constipation. Continue with stool softener and MiraLax every 3rd day if she does not have a bowel movement to avoid constipation and pain Assessment & Plan (04/18/2024 7:56 PM CDT): Patient with constipation. Probably related to her narcotics but also recent surgery. Provided information on bowel care. Continue to monitor closely. If she does not have a good evacuation with in the next 2-3 days will need to get imaging to rule out obstruction. If her pain continues to increase she needs to go into the ER sooner. Patient is in agreement with the plan For good bowel health -- Ecourage increased exercise - 30 minutes walking every day 2. Increase water -- minimum 64oz every day 3. Increase Fiber -- She needs 25-30 grams of fiber daily. It usually requires multiple sources including food and supplements. She can google high fiber foods. I would encourage metamucil or Benefiber available otc. 4. Take daily stool softners: Colace 100mg 1 - 2 times a day 5. Is she goes 3 days without a stool, do a dose of Miralax daily until she has a stool. Pulmonary nodules 04/18/2024 Overview (04/18/2024): 01/2024 CT Chest/Abdomen: There is bronchiectasis and small nodules in the right middle lobe and lingula probably related to atypical mycobacterial infection. 6 mm nodule in the left upper lobe on image 137. There is a 10 mm nodule in the right upper lobe on image 152 series 5. The appearance favors infectious process. Recommend 3 to six-month follow-up chest CT. (Due approx 04/2024) Assessment & Plan (04/18/2024 8:03 PM CDT): Incidental finding on 01/2024 CT Chest/Abdomen: There is bronchiectasis and small nodules in the right middle lobe and lingula probably related to atypical mycobacterial infection. 6 mm nodule in the left upper lobe on image 137. There is a 10 mm nodule in the right upper lobe on image 152 series 5. The appearance favors infectious process. Recommend 3 to six-month follow-up chest CT. (Due approx 04/2024) Rheumatoid arthritis involvi ng hand with positive rheumatoid factor 01/04/2024 Assessment & Plan (09/27/2024 1:03 PM NUTRITION TECH): Rheumatoid arthritis is managed by [facility]. She has very significant case and is struggling with finding medication to control the symptoms. Has follow up with Dr. Ronald forman in a few weeks to discuss medication options as she is currently on hold with the Simponi as she is unsure if it is really helping. Has increased prednisone to 7.5daily along with gabapentin. Hydrocodone 7.5 t.i.d. is not holding through for her pain control. Will increase to q.6 hours dispensing One hundred twenty per 90 days to see if this helps manage her pain Assessment & Plan (05/06/2024 11:57 PM CDT): Continue with [facility]. She is restarted her routine meds. She would like to return back to the hydrocodone 7.5 t.i.d. as this was her maintenance prior to surgery and she likes it much better than the oxycodone due to less side effects Assessment & Plan (04/18/2024 7:57 PM CDT): Continue per Rheumatology. She was instructed to restart her rheumatologic medicines so waiting on them to kick in. She uses hydrocodone 7.5/325 for her chronic pain related to her rheumatoid arthritis as it is crippling and very severe. She had been taking it q.6 hours. Instructed her she could increase it to q.4 hours until she gets through this flare in her medicine start working again. Reminded her that increased narcotics can increase constipation so she needs to follow the bowel care very carefully. She is in agreement with the plan Assessment & Plan (02/21/2024 11:35 AM CDT): Managed by [facility]. EVA Jennings Continue current med regimen: -leflunomide 20 mg -prednisone 7.5 mg -Simponi - just had it 2 weeks ago (02/02) -Flexeril PRN -hydrocodone PRN Assessment & Plan (01/04/2024 6:19 PM CDT): Continue per [facility] She is having a flair -- encouraged to contact Rheum but also encouraged her to get in with EVA Russell for injections especially of the right shoulder hands and feet as able -- Continue Hydrocodone prn -- She uses 2-4/day. Fatigue 01/04/2024 Assessment & Plan (11/25/2024 11:53 PM NUTRITION TECH): Probably multifactorial. Check labs and followup to re-evaluate Assessment & Plan (01/04/2024 6:20 PM CDT): Discussed the patient's BMI. The BMI is above average. BMI management plan is completed. BMI Follow-up includes: nutrition counseling, exercise counseling and education provided. Abdominal aortic aneurysm (AAA) without rupture 01/04/2024 Assessment & Plan (06/10/2024 7:42 PM CDT): Patient with history of abdominal aortic aneurysm. Recently repaired and then had an iliac artery thrombosis which required extraction and now is on Xarelto Assessment & Plan (04/20/2024 11:04 AM CDT): infrarenal AAA (5.3 x 4.6 cm in size as of most recent CT scan) s/p EVAR 03/28/2024 -cont OP follow up Assessment & Plan (04/18/2024 7:58 PM CDT): Status post AAA repair. She is to follow up with the surgeon as instructed Assessment & Plan (04/18/2024 4:58 PM CDT): Recent repair of AAA Assessment & Plan (03/28/2024 9:32 AM CDT): Recent CT scan shows interval enlargement aneurysms to 5.3 x 4.6 cm size with focal outpouching in the sac. Presenting for scheduled EVAR. - 03/28: OR s/p EVAR - OU status, Q2 NV/VS - Goal normotension - Pain control - ADAT Assessment & Plan (02/21/2024 1:33 PM CDT): Infrarenal aneurysm has grown to 5.3x4.6 cm and spanning 7.5 cm. Referral to [facility]. Patient educated on severity and risks of this diagnosis. Reviewed if she was to have severe back pain to go to the ER due to risk of rupture. Educated on smoking cessation and the immediate need for complete cessation. Assessment & Plan (01/04/2024 6:51 PM CDT): Incidental finding:\ 09/2022 -- CT abd/pelvis IMPRESSION: No acute fracture Aneurysmal dilatation of the abdominal aorta measuring a maximum of 3.6 cm Need to get imaging. Cigarette smoker 07/05/2023 Assessment & Plan (01/28/2025 12:40 AM CDT): Encouraged smoking cessation. Discussed 3 minutes. Reviewed options for assistance with cessation. 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 Pt declines assistance at this time but may contact the office at anytime for further help as they desire. Assessment & Plan (09/27/2024 1:02 PM NUTRITION TECH): Encouraged smoking cessation. Discussed 3 minutes. Reviewed options for assistance with cessation. 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 Pt declines assistance at this time but may contact the office at anytime for further help as they desire. Assessment & Plan (05/06/2024 11:58 PM CDT): Encouraged smoking cessation. Discussed 3 minutes. Reviewed options for assistance with cessation. 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 Pt declines assistance at this time but may contact the office at anytime for further help as they desire. Patient is working on cessation on her own and declines any further assistance at this time Assessment & Plan (04/18/2024 7:56 PM CDT): Continue smoking cessation to where she is completely done. She has been decreasing on her own and at this point and does not request assistance. Assessment & Plan (04/18/2024 4:57 PM CDT): Encouraged smoking cessation. Discussed 3 minutes. Reviewed options for assistance with cessation. Reviewed usp sequela associated with smoking. Pt declines assistance at this time but may contact the office at anytime for further help as they desire. Assessment & Plan (02/21/2024 11:23 AM CDT): Encouraged smoking cessation. Reviewed risks and long-term sequela associated with smoking. Patient declines assistance at this moment, but encouraged to call the office anytime for further help. Assessment & Plan (01/04/2024 6:18 PM CDT): Encouraged smoking cessation. Discussed 3 minutes. Reviewed options for assistance with cessation. Reviewed usp sequela associated with smoking. Pt declines assistance at this time but may contact the office at anytime for further help as they desire. Assessment & Plan (07/05/2023 11:30 AM CDT): Encouraged smoking cessation. Discussed 3 minutes. Reviewed options for assistance with cessation. Reviewed usp sequela associated with smoking. Pt declines assistance at this time but may contact the office at anytime for further help as they desire. Diverticulosis 03/24/2023 BMI 22.0-22.9, adult 01/05/2023 Assessment & Plan (07/19/2025 9:05 AM CDT): Weight/BMI is in healthy range. Continue healthy lifestyle to maintain. Assessment & Plan (01/28/2025 12:40 AM CDT): Weight/BMI is in healthy range. Continue healthy lifestyle to maintain. Assessment & Plan (11/25/2024 11:53 PM NUTRITION TECH): Weight/BMI is in healthy range. Continue healthy lifestyle to maintain. Assessment & Plan (09/27/2024 8:36 AM NUTRITION TECH): Weight/BMI is in healthy range. Continue healthy lifestyle to maintain. Assessment & Plan (01/05/2023 10:14 AM CDT): Weight/BMI is in healthy range. Continue healthy lifestyle. High risk medication use 06/11/2022 Assessment & Plan (06/24/2025 10:14 AM CDT): Will monitor routine labs while on immunosuppressive medications. Labs today. 10/2021: Neg QuantoTbyld 08/2014: Neg Hep BsAg/C Assessment & Plan (03/19/2025 9:37 PM CDT): Will monitor routine labs while on immunosuppressive medications. 10/2021: Neg QuantGold 08/2014: Neg Hep BsAg/C Assessment & Plan (12/19/2024 12:29 PM NUTRITION TECH): Will monitor routine labs while on immunosuppressive medications. Will also check TSH, lipids and A1c per PCP lab orders. 10/2021: Neg QuantGold 08/2014: Neg Hep BsAg/C Assessment & Plan (10/02/2024 8:30 AM NUTRITION TECH): Will monitor routine labs while on immunosuppressive medications. 10/2021: Neg QuantGold 08/2014: Neg Hep BsAg/C Assessment & Plan (07/30/2024 10:02 PM CDT): Will monitor routine labs while on immunosuppressive medications. 10/2021: Neg QuantGold 08/2014: Neg Hep BsAg/C Assessment & Plan (04/30/2024 4:32 PM CDT): Will monitor routine labs while on immunosuppressive medications. Reviewed recent CBC/CMP - WBC/HgB improving. 10/2021: Neg QuantGold 08/2014: Neg Hep BsAg/C Assessment & Plan (12/23/2023 1:44 PM NUTRITION TECH): Will monitor routine labs while on immunosuppressive medications. 10/2021: Neg QuantGold 08/2014: Neg Hep BsAg/C Assessment & Plan (09/19/2023 11:31 AM NUTRITION TECH): Will monitor routine labs while on immunosuppressive medications. 10/2021: Neg QuantGold 08/2014: Neg Hep BsAg/C Assessment & Plan (07/18/2023 10:28 PM CDT): Will monitor routine labs while on immunosuppressive medications. 10/2021: Neg QuantGold Assessment & Plan (04/18/2023 2:56 PM CDT): Will monitor routine labs while on immunosuppressive medications. Routine labs due in 1 month. 10/2021: Neg QuantGold Assessment & Plan (02/28/2023 12:15 PM CDT): Will monitor routine labs while on immunosuppressive medications. 10/2021: Neg QuantGold Assessment & Plan (11/10/2022 9:35 PM NUTRITION TECH): Will monitor routine labs while on immunosuppressive medications. 10/2021: Neg QuantGold Assessment & Plan (08/12/2022 11:03 AM CDT): Will monitor routine labs while on immunosuppressive medications. 10/2021: Neg QuantGold Assessment & Plan (06/11/2022 12:47 PM CDT): Will monitor routine labs while on immunosuppressive medications. 10/2021: Neg QuantGold Shortness of breath 04/13/2022 Assessment & Plan (04/10/2023 7:35 PM CDT): Patient is a long-term smoker and probably has COPD. PFTs and not done completed willing to consider starting inhaler. Will send breasts tree and see what coverage is. Two puffs twice a day. Follow-up in 3-4 months to reassess or sooner for any problems or concerns may still use albuterol p.r.n. Assessment & Plan (04/13/2022 8:52 PM CDT): Continue routine CT chest scans 2/2 smoking and RA diagnosis. May need to see a rough patcher again for PFTs. Currently feels stable. Neuropathy 03/29/2022 Assessment & Plan (09/25/2022 7:43 PM NUTRITION TECH): Doing well with gabapentin. Refills available at pharmacy. Assessment & Plan (07/11/2022 7:14 PM CDT): Continue on gabapentin 200 mg HS Assessment & Plan (03/29/2022 6:29 PM CDT): Increase Gabpentin to 200 mg HS. Postmenopausal osteoporosis 01/01/2021 Overview (04/14/2022): 03/2022 Vit D 41 Assessment & Plan (06/25/2025 2:32 PM CDT): 08/2022 DEXA with Tscore of -2.2 femoral neck. FRAX score as follows (RF fragility fx, smoker, steroid use, RA): Major osteoporotic 37% Hip Fracture 15% Previously had a reclast infusion with side effects. Has continued Ca-Vitamin D (50k q every other week since 09/15). Receives Prolia injections (q6 months) through [facility]. First injection was on 08/17/23, most recent injection was 02/20/25. Due for new DEXA scan and has an appt in July. Will check Vit D level again today with next Prolia due after 08/22/25. Assessment & Plan (03/20/2025 2:49 PM CDT): 08/2022 DEXA with Tscore of -2.2 femoral neck. FRAX score as follows (RF fragility fx, smoker, steroid use, RA): Major osteoporotic 37% Hip Fracture 15% Previously had a reclast infusion with side effects. Has continued Ca-Vitamin D (50k q every other week since 09/15). Receives Prolia injections (q6 months) through [facility]. First injection was on 08/17/23, most recent injection was 02/20/25. Due for new DEXA scan and the earliest appt is not until July. Will check Vit D level again today as it was decreasing. Assessment & Plan (12/19/2024 12:29 PM NUTRITION TECH): 08/2022 DEXA with Tscore of -2.2 femoral neck. FRAX score as follows (RF fragility fx, smoker, steroid use, RA): Major osteoporotic 37% Hip Fracture 15% Previously had a reclast infusion with side effects. Has continued Ca-Vitamin D (50k q every other week since 09/15). Receives Prolia injections (q6 months) through [facility]. First injection was on 08/17/23, most recent injection was 08/22/24. Due for new DEXA scan and the earliest appt is not until July. Will check Vit D level today - next Prolia due after 02/20/25. Assessment & Plan (10/02/2024 8:33 PM NUTRITION TECH): 08/2022 DEXA with Tscore of -2.2 femoral neck. FRAX score as follows (RF fragility fx, smoker, steroid use, RA): Major osteoporotic 37% Hip Fracture 15% Previously had a reclast infusion with side effects. Has continued Ca-Vitamin D (50k q every other week since 09/15). Receives Prolia injections (q6 months) through [facility]. First injection was on 08/17/23, most recent injection was 08/22/24. Due for new DEXA scan. Assessment & Plan (09/27/2024 1:02 PM NUTRITION TECH): Patient with osteoporosis. Currently managed by Rheumatology. She is on chronic steroids and has significant rheumatoid deformities. She is very thin and is a smoker so multiple risk factors. Currently doing Prolia every 6 months with calcium vitamin-D and exercise Assessment & Plan (07/31/2024 8:46 AM CDT): 08/2022 DEXA with Tscore of -2.2 femoral neck. FRAX score as follows (RF fragility fx, smoker, steroid use, RA): Major osteoporotic 37% Hip Fracture 15% Previously had a reclast infusion with side effects. Has continued Ca-Vitamin D (50k q every other week since 09/15). Receives Prolia injections (q6 months) through [facility]. First injection was on 08/17/23 with next due on 08/18/24. Will check vitamin-D and CMP today. Assessment & Plan (04/28/2024 8:12 AM CDT): 08/2022 DEXA with Tscore of -2.2 femoral neck. FRAX score as follows (RF fragility fx, smoker, steroid use, RA): Major osteoporotic 37% Hip Fracture 15% Previously had a reclast infusion with side effects. Has continued Ca-Vitamin D (50k q every other week since 09/15). Receives Prolia injections (q6 months) through [facility]. First injection was on 08/17/23 with next due on 08/18/24. Will check vitamin-D and CMP at next visit. Assessment & Plan (02/21/2024 11:26 AM CDT): Last DXA on file 09/04/22. Spine: -1.4 Total hip mean: -2.0 Femoral neck:-2. Continue Ca-Vit D. Continue Prolia injections with [facility]. Assessment & Plan (12/23/2023 1:47 PM NUTRITION TECH): 08/2022 DEXA with Tscore of -2.2 femoral neck. FRAX score as follows (RF fragility fx, smoker, steroid use, RA): Major osteoporotic 37% Hip Fracture 15% Previously had a reclast infusion with side effects. Has continued Ca-Vitamin D (50k q every other week since 09/15). Receives Prolia injections (q6 months) through [facility]. First injection was on 08/17/23 with next due on 02/16/24. Will check vitamin-D and CMP today. Assessment & Plan (09/19/2023 9:59 AM NUTRITION TECH): 08/2022 DEXA with Tscore of -2.2 femoral neck. FRAX score as follows (RF fragility fx, smoker, steroid use, RA): Major osteoporotic 37% Hip Fracture 15% Previously had a reclast infusion with side effects. Has continued Ca-Vitamin D (50k weekly since 07/22/23). Receives Prolia injections (q6 months) through [facility]. First injection was on 08/17/23 with next due on 02/16/24. Assessment & Plan (07/19/2023 11:29 AM CDT): Recent DEXA 08/2022 with Tscore of -2.2 femoral neck. FRAX score as follows (RF fragility fx, smoker, steroid use, RA): Major osteoporotic 37% Hip Fracture 15% Previously had a reclast infusion with side effects. Has continued Ca-Vitamin D (50k monthly). She is approved for Prolia but this has to be given at an outside hospital per insurance requirement. She would be able to go to [place] [facility] order there and let her know. Assessment & Plan (03/01/2023 10:04 AM CDT): Recent DEXA 08/2022 with Tscore of -2.2 femoral neck. FRAX score as follows (RF fragility fx, smoker, steroid use, RA): Major osteoporotic 37% Hip Fracture 15% Previously had a reclast infusion with side effects. Has continued Ca-Vitamin D (50k monthly). She is approved for Prolia and would like to start treatment, however it will have to be given at an outside hospital per insurance requirement. Assessment & Plan (11/11/2022 9:50 PM NUTRITION TECH): Recent DEXA 08/2022 with Tscore of -2.2 femoral neck. FRAX score as follows (RF fragility fx, smoker, steroid use, RA): Major osteoporotic 37% Hip Fracture 15% Previously had a reclast infusion with side effects. Has continued Ca-Vitamin D (50k monthly). Discussed starting treatment with Prolia as she already has GI upset at baseline and unlikely to tolerate oral bisphosphonates. Reviewed potential side effects/reactions with Prolia and provided a handout for further review - she agreed to try. Will start approval. Assessment & Plan (08/12/2022 11:07 AM CDT): [facility]uled [facility]. She is on monthly 50K vitamin D. Will call her once results are obtain and discuss findings as well as medication options (likely Prolia or Evenity). Strongly encouraged smoking cessation. Assessment & Plan (06/11/2022 12:48 PM CDT): Known osteoporosis with one time reclast infusion and questionable side effects (exacerbated RA flare?). Did not get 2019 DEXA scan performed. Will provide another DEXA scan order to have performed at [facility] and will request previous DEXA scan results. To discuss appropriate treatment based on her results of upcoming DEXA scan (Prolia vs Evenity). Again stressed the importance of smoking cessation. Encouraged use of light wrist weights to improve upper extremity strength and bone quality. Assessment & Plan (04/13/2022 8:17 PM CDT): Known osteoporosis with one time reclast infusion and questionable side effects (exacerbated RA flare?). Will try to get most recent 2019 DEXA scan results from PCP office. She does have an order to get an updated scan with earliest appointment 3 months. Out. Briefly discussed option for Prolia and reviewed the side effects and dosing regimen. Shew as interested in this treatment. Will check vitamin D today and try for insurance approval. Episode of recurrent major depressive disorder 0 12/01/2019 Assessment & Plan (09/27/2024 1:01 PM NUTRITION TECH): Symptoms are stable with Cymbalta 60. Discussed increasing the dose to help with pain. She wants to hold off at this point but will consider Assessment & Plan (06/10/2024 7:51 PM CDT): Continue with Cymbalta as her symptoms are stable Assessment & Plan (05/07/2024 12:01 AM CDT): Symptoms are stable with the Cymbalta. Refills available Assessment & Plan (03/28/2024 9:21 AM CDT): - continue duloxetine Assessment & Plan (02/21/2024 11:27 AM CDT): Continue Cymbalta 60 mg Assessment & Plan (01/04/2024 6:18 PM CDT): Continue Cymbalta and xanax prn Assessment & Plan (07/05/2023 11:29 AM CDT): Stable with Cymbalta 60 Assessment & Plan (04/10/2023 7:33 PM CDT): Continue Cymbalta and Xanax p.r.n. Assessment & Plan (09/25/2022 7:43 PM NUTRITION TECH): Continue Cymbalta and Xanax p.r.n. symptoms are stable Assessment & Plan (03/29/2022 6:22 PM CDT): Continue Cymbalta 60 mg. Symptoms are stable Assessment & Plan (01/06/2022 8:04 PM CDT): Stable with Cymbalta 60. Refills to pharmacy Assessment & Plan (10/03/2021 4:53 PM NUTRITION TECH): Stable with Cymbalta Assessment & Plan (05/17/2021 9:35 PM CDT): Continue cymbalta and xanax. She was started on amytriptyline Assessment & Plan (01/19/2021 10:52 PM CDT): Stable with the cymbalta Assessment & Plan (09/21/2020 5:39 PM NUTRITION TECH): Continue the cymbalta. Will provide a few xanax as she is very emotional regarding her daughters cancer diagnosis and she will be going to stay with them for a while to assist. Assessment & Plan (06/08/2020 9:44 AM CDT): Continue cymblata. Assessment & Plan (02/27/2020 8:59 AM CDT): Stable with Cymbalta. Assessment & Plan (12/01/2019 11:47 PM NUTRITION TECH): Continue the cymbalat Menopause 09/16/2019 Assessment & Plan (03/29/2022 6:22 PM CDT): DEXA scheduled at [place]. Gastroesophageal reflux disease without esophagi tis 07/24/2019 Assessment & Plan (01/28/2025 12:43 AM CDT): Continue PPI PRN. Her symptoms have increased so encouraged her to take it for the next month daily and then can try to taper back down again Assessment & Plan (01/04/2024 6:09 PM CDT): Continue PPI prn Assessment & Plan (04/10/2023 7:34 PM CDT): Continue PPI p.r.n. Assessment & Plan (12/01/2019 11:44 PM NUTRITION TECH): Continue PPI Assessment & Plan (09/16/2019 8:53 PM NUTRITION TECH): Stable with diet controlled Assessment & Plan (08/04/2019 8:03 PM CDT): Continue PPI prn Rheumatoid arthritis involvi ng multiple sites with positive rheumatoid factor 07/24/2019 Overview (10/31/2023): US right hand/wrist (04/21/22): Mild/moderate effusions and power doppler on examination. Marked synovial thickening in the 2nd and 3rd PIP joints. Grade 2 effusion in the volar 2nd and 4th MCP joints. Grade 2 power doppler in the radial/scaphoid joint and 2nd PIP joint. Grade 1 effusion in the wrist. Grade 1 power doppler in the 4th MCP joint. Patient on prednisone 7.5 mg daily at time of US. US right hand/wrist (10/31/23): Grade 2 power doppler in the 2nd PIP joint. Grade 1 effusion in the wrist. Moderate synovial thickening in the 2nd and 3rd PIP joints. Superior subluxation of the 2nd and 3rd metacarpal heads. 08/2022 mammogram unremarkable Assessment & Plan (06/25/2025 2:38 PM CDT): 10/2023 repeat R hand/wrist US demonstrated grade 2 pd of the 2nd PIP joint, grade 1 effusion in the wrist and moderate synovial thickening of the 2nd and 3rd PIP joints. Compared to 03/2022 right hand/wrist US there had been a moderate reduction in inflammatory findings. Off Simponi Aria as she felt she had no benefit and began Cimzia monthly injections in Oct 2024 and continued daily leflunomide and 7.5mg prednisone. Continues to have RA flare ups, most recent was end of April affecting her left foot and required higher dose of prednisone. Minimal amount of synovitis on exam. Discussed starting treatment with low dose methotrexate, which she was on in the past, for better control of her RA and in an attempt to reduce her prednisone dose. She was amenable to the plan and would have an easier time with Rasuvo pens given her chronic RA hand deformities - will try to get insurance approval. Continue Cimzia monthly injections, 20mg leflunomide daily and 7.5mg prednisone daily. Routine labs today. Return in 6 weeks. Assessment & Plan (03/20/2025 2:57 PM CDT): 10/2023 repeat R hand/wrist US demonstrated grade 2 pd of the 2nd PIP joint, grade 1 effusion in the wrist and moderate synovial thickening of the 2nd and 3rd PIP joints. Compared to 03/2022 right hand/wrist US there had been a moderate reduction in inflammatory findings. Off Simponi Aria as she felt she had no benefit but began Cimzia monthly injections in Oct 2024 and continued daily leflunomide and 7.5mg prednisone. Appreciated a flare up earlier this month and completed a prednisone taper. Joints remain sore, gulshan the right foot. Takes Keatchie TID through PCP. Slight amount of fullness of bilateral 2-3rd MCP joints and right 3rd PIP joint. There is ttp along the right achilles tendon and the plantar aspect of the MTP joints. Recommend application of voltaren gel to right ankle/MTP joints - consider follow up with a preparation plant supervisor for shoe inserts (referral provided). Continue Cimzia monthly injections, 20mg leflunomide daily and 7.5mg prednisone daily. Could consider retrial of MTX via SQ route to lessen GI associated symptoms. Labs today. Return in 3 months, sooner if needed. Seen with Dr. Bond for Dr. Robertson. Assessment & Plan (01/28/2025 12:41 AM CDT): Rheumatology -- [facility] - CIMZIA, LEF and 7.5mg prednisone daily. neurotin -- neuropathy new dx--is helping Uses the hydrocodone tid but has persistent daily pain. Ran out due to supply issues at the pharmacy and is feeling intense pain all over. Denies typical withdraw symptoms. Refills is available at pharmacy Assessment & Plan (12/19/2024 12:32 PM NUTRITION TECH): 10/2023 repeat R hand/wrist US demonstrated grade 2 pd of the 2nd PIP joint, grade 1 effusion in the wrist and moderate synovial thickening of the 2nd and 3rd PIP joints. Compared to 03/2022 right hand/wrist US there had been a moderate reduction in inflammatory findings. Off Simponi Aria as she felt she had no benefit but began Cimzia monthly injections in September and continued daily leflunomide and 7.5mg prednisone. Developed possible hive on her left leg following last month's Cimzia injection with next injection due to tomorrow. No significant flare ups but joints will occasionally be swollen. Recent rough patcher OV with stable ILD findings. Minimal amount of synovitis on exam today. Continue Cimzia monthly injections (to take a zyrtec today/tomorrow/Tuesday and predose with benadryl tomorrow before she receives next injection - if hive develops she was encouraged to draw a point hope ira around it, take a picture and send to me for discussion). Continue 20mg leflunomide daily and 7.5mg prednisone daily. Labs today. Return in 3 months, sooner if needed. Assessment & Plan (12/18/2024 10:50 PM NUTRITION TECH): 10/2023 repeat R hand/wrist US demonstrated grade 2 pd of the 2nd PIP joint, grade 1 effusion in the wrist and moderate synovial thickening of the 2nd and 3rd PIP joints. Compared to 03/2022 right hand/wrist US there has been a moderate reduction in inflammatory findings. She has remained off Simponi Aria as she felt she had no benefit and continued daily leflunomide and 7.5mg prednisone. Currently in a flare up with increased synovitis and joint pain. REcent CTA abdomen/pelvis found chronic interstitial lung disease changes with honeycombing in the posterior lung bases new since CT lungs from January - she is seeing Dr. Ann on 10/25 to discuss. Moderate synovitis on exam. She has few remaining biologic medications left to try - Kevzara or Cimzia. Discussed both medications - she reports a history of diverticulitis therefore will start approval for Cimzia. She was amenable to coming monthly for in office injections. Continue 20mg leflunomide daily and 7.5mg prednisone daily. Due to burden of disease will provide a 100mg systemic IM kenalog injection. Will check labs at next visit. Return in 2 months, sooner if needed. Seen with Dr. Robertson. Assessment & Plan (07/31/2024 12:24 PM CDT): 10/2023 repeat R hand/wrist US demonstrated grade 2 pd of the 2nd PIP joint, grade 1 effusion in the wrist and moderate synovial thickening of the 2nd and 3rd PIP joints. Compared to 03/2022 right hand/wrist US there has been a moderate reduction in inflammatory findings. Continued daily leflunomide, 7.5mg prednisone, however has decided not to continue Simponi Aria infusions (started 03/23/23) as of last month. Reports 3 separate flare ups last month involving her left and right wrists/hands and left elbow that caused significant pain and loss of function. Still with moderate synovitis on exam today. CDAI 21. Continue 20 mg leflunomide daily and 7.5 mg prednisone daily. Will have her stop in home Simponi Aria infusions per her request - monitor joints closely as I suspect she will start to appreciate worsening symptoms off biologic therapy. To call when she has a flare up to discuss steroid treatment. Recommend drinking a Boost or Ensure once daily in addition to her normal meals to improve her protein level. Labs today. Return in 2 months, sooner if needed. Assessment & Plan (06/10/2024 7:44 PM CDT): Continue per [facility]. She continues with support any home infusions and leflunomide as well as her prednisone daily gabapentin and hydrocodone as needed. Assessment & Plan (04/30/2024 4:36 PM CDT): 10/2023 repeat R hand/wrist US demonstrated grade 2 pd of the 2nd PIP joint, grade 1 effusion in the wrist and moderate synovial thickening of the 2nd and 3rd PIP joints. Compared to 03/2022 right hand/wrist US there has been a moderate reduction in inflammatory findings. Continued daily leflunomide, prednisone and in home Simponi Aria infusions (started 03/23/23) since last visit. Reports fewer flare ups since starting Simponi Aria. Last flare up was in December with temporary increase in steroid dose. 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 No synovitis on exam. Continue in-home Simponi Aria infusions as she appears to be responding well, 20 mg leflunomide daily and 7.5 mg prednisone daily. Recommend drinking a Boost or Ensure once daily in addition to her normal meals to improve her protein level. Recent CBC/CMP stable. Return in 3 months, sooner if needed. Assessment & Plan (04/18/2024 5:04 PM CDT): RA -- manage by [facility] Rhe[facility] Assessment & Plan (03/28/2024 9:19 AM CDT): Follows w/ Rheum, on Simponi Aria infusions, 20 mg leflunomide daily and 7.5 mg prednisone daily - Per recent Rheum note regarding meds for surgery, ok to hold leflunomide 2-3 days before and for 2-3 days post-op. Should continue prednisone. Continue prednisone and hold leflunomide. - f/u with Rheum Assessment & Plan (02/21/2024 11:17 AM CDT): Managed by [facility]. EVA Jennings Continue current med regimen: -leflunomide 20 mg -prednisone 7.5 mg -Simponi - just had it 2 weeks ago (02/02) -Flexeril PRN -hydrocodone PRN Assessment & Plan (01/04/2024 6:17 PM CDT): Continue per [facility] She is having a flair -- encouraged to contact Rheum but also encouraged her to get in with EVA Russell for injections especially of the right shoulder hands and feet as able -- Continue Hydrocodone prn -- She uses 2-4/day. Assessment & Plan (12/23/2023 1:55 PM NUTRITION TECH): Recent repeat R hand/wrist US demonstrated grade 2 pd of the 2nd PIP joint, grade 1 effusion in the wrist and moderate synovial thickening of the 2nd and 3rd PIP joints. Compared to 03/2022 right hand/wrist US there has been a moderate reduction in inflammatory findings. Continued daily leflunomide, prednisone and in home Simponi Aria infusions (started 03/23/23) since last visit. Feels that she has had fewer flare ups since starting Simponi Aria. Currently dealing with low back pain. Continues to have stable synovitis on exam with subluxations of several MCP joints. Recommend she follow up with her orthopedist(s) to get a right 1st MCP joint and right shoulder injection. Also to discuss her low back pain with her PCP. Continue in-home Simponi Aria infusions as she appears to be responding well, 20 mg leflunomide daily and 7.5 mg prednisone daily. Will check CBC/CMP and Vit D today. Return in 3-4 months, sooner if needed. Assessment & Plan (09/19/2023 11:44 AM NUTRITION TECH): CDAI 20, moderate Continued daily leflunomide, prednisone and in home Simponi Aria infusions (started 03/23) - due for next infusion on 10/05. Cannot appreciate any change in her usual joint symptoms with the infusion. Developed pain/reduced ability to flex her left elbow last week after pulling/lifting totes filled with decorations and swelling under the pads of her left 2-4th MTP joints in early July but is now resolved. Slight improvement in synovitis on exam as compared to last visit. There is ttp over the biceps tendon with questionable fullness along the medial epicondyle and pain. Suspect her left elbow pain is due to irritation of the biceps tendon and discussed ice/heat application as well as a 5lbs weight restriction for a few more weeks to further reduce irritation and potential for a tear. Continue in-home Simponi Aria infusions for now - will decide whether to continue based on the results of the hand US that she will reschedule for early October. Continue 20 mg leflunomide daily and 7.5 mg prednisone daily. Will check CBC/CMP when she returns for hand US. Return in 3 months, sooner if needed. Assessment & Plan (07/19/2023 11:42 AM CDT): CDAI , Continued daily leflunomide, prednisone and in home Simponi Aria infusions (since 03/23). Cannot appreciate any change in her joint symptoms. Does report increased bruising to her arms (purpura appearance) and legs (phone image of left knee with large hematoma) without falls/trauma. Also with idiopathic wounds to her legs/thighs that take weeks to heal. Stable synovitis on exam with few tender joints. Do not suspect her infusions are causing the bruising and will continue to monitor. Continue in-home Simponi Aria infusions to allow more time to take effect. Continue 20 mg leflunomide daily and 7.5 mg prednisone daily. Will obtain routine labs again today given new purpura/hematomas. Will also obtain a repeat R hand/wrist US a week before her next appointment to see if she has improved inflammation on current regimen. Return in 2-3 months, sooner if needed. Seen with Dr. Robertson. To get hand US a week before her next visit. Assessment & Plan (07/05/2023 11:31 AM CDT): Continue per [facility]. Patient is noting increased pain. She has changed her medications but still awaiting the response. Currently on 7.5 hydrocodone t.i.d.. She may increase to an extra half to 1 a day as needed. Will increase dosing based upon her use. Assessment & Plan (04/18/2023 3:00 PM CDT): CDAI 14, moderate Continue daily leflunomide and prednisone since last visit in began in home Simponi Aria infusions on 03/23 which went well. Reports development of a headache following her infusion that lasted for a few days before resolving but no other side effects. Did receive a systemic Kenalog injection after last visit with moderate reduction in her previous flare-up. Feeling better today. Continues to have dyspnea and followed up with her PCP and was prescribed Symbicort inhaler however has only taken this for a few days. No updated PFTs. Still some synovitis on exam but vastly improved since last visit. Continue in-home Simponi Aria infusions (2nd loading dose scheduled for this week) to allow more time to take effect. Continued 20 mg leflunomide daily and 7.5 mg prednisone daily. Will obtain routine labs in 4 weeks. Return in 3-4 months, sooner if needed. Assessment & Plan (04/10/2023 7:34 PM CDT): Continue per Rheumatology Assessment & Plan (03/01/2023 12:58 PM CDT): CDAI 38, high 03/2022 Right hand US demonstrated mild/moderate effusion and power doppler without erosions. Radiographic imaging of her shoulders, hands, feet demonstrated varying degrees of osteoarthritic changes without erosions. Continued leflunomide and prednisone since last visit but has been off biologic therapy since September - she was approved for Simponi Aria infusions but these would have to be given at a hospital per insurance and she is unable to set up the infusions through [facility], which would be closer to her. Began to have flare up 2 weeks ago affecting her hands, knees and feet/ankles - joints were very swollen and affecting her ability to walk, mildly improving at this time. There is significant synovitis on exam with tendon effusions of the R hand 5th extensor tendon and tendonitis/effusions at the insertions of the bilateral posterior tibialis tendons. Discussed possible option to have simponi aria infusions in home through [employer] [facility] and she was amenable - will send in paperwork. Continue 20mg leflunomide and 7.5mg prednisone daily. Due to burden of disease, will administer kenalog 100 mg IM injection, in office, today. 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 Routine labs today. Return in 6 weeks. Sooner if needed. Seen with Dr. Robertson. Assessment & Plan (11/11/2022 9:54 PM NUTRITION TECH): CDAI 17 , moderate 03/2022 Right hand US demonstrated mild/moderate effusion and power doppler without erosions. Radiographic imaging of her shoulders, hands, feet demonstrated varying degrees of osteoarthritic changes without erosions. Continued leflunomide and prednisone since last visit but stopped Rinvoq early last month after she was found to have an abdominal aortic aneurysm (concerned Kelley would worsen this). Notes no change in joint symptoms with cessation of Rinvoq. Continues to have similar synovitis as last visit with few tender peripheral joints. Due to her concern as well as lack of change/worsening of her RA off Rinvoq will stop. Discussed switching to Simponi Aria and reviewed the dosing regimen and potential side effects - she was amenable to trying it. Will start approval process. Continue leflunomide and prednisone daily. Routine labs today. Return in 3 months. Sooner if needed. Seen with Dr. Robertson. Assessment & Plan (09/25/2022 7:42 PM NUTRITION TECH): Continue per Rheumatology. Started Rinvoq and is on leflunomide and prednisone. Using neuro 10 for neuropathy symptoms but thinks it may be helping some with her pain to continues to use hydrocodone and Flexeril for her daily persistent pain secondary to her rheumatoid arthritis Assessment & Plan (08/12/2022 11:09 AM CDT): CDAI 18 , moderate 03/2022 Right hand US demonstrated mild/moderate effusion and power doppler without erosions. Radiographic imaging of her shoulders, hands, feet demonstrated varying degrees of osteoarthritic changes without erosions. Continued Rinvoq, leflunomide and prednisone since last visit with decreased frequency of flare ups. Did experience flare up of left wrist pain/swelling twice more recently. There has been a decrease in joint tenderness and synovitis on exam as compared to last visit. Does appear to be responding to Rinvoq. Continue current regimen. Unfortunately she has already tried/failed most treatments for her Rheumatoid Arthritis and therefore treatment options are limited. Routine labs today. Return in 3 months. Sooner if needed. Assessment & Plan (06/11/2022 12:46 PM CDT): CDAI Right hand US demonstrated mild/moderate effusion and power doppler without erosions. Radiographic imaging of her shoulders, hands, feet demonstrated varying degrees of osteoarthritic changes without erosions. Began Rinvoq over a month ago and continued daily Leflunomide and 7.5mg prednisone. Notes no change in joint complaints and still with moderate synovitis and chronic OA/RA changes of the hands. Continue current regimen to allow more time for Rinvoq to take effect. Fortunately she has already tried/failed most treatments for her Rheumatoid Arthritis and therefore treatment options are limited. Routine labs today. Return in 2 months. Sooner if needed. Seen with Dr. Robertson. Assessment & Plan (04/13/2022 8:50 PM CDT): Ms. Rowe is a 67yo female with PMH of Depression, anemia, diverticulosis, GERD, osteoporosis and AAA who presents to establish care of her +RF/CCP RA diagnosed about 12 years ago. Currently on 20mg LEF and 7.5mg prednisone once daily. Previously tried/failed numerous other medications (see chart). Reports pain mostly in her ands, knees and feet with 2hrs of AM stiffness. Describes paresthesias of the hands despite R CT release. Had diverticulitis (osis?) 12 yrs ago found on colonoscopy. Denies any CHF, blood clots, crohns/UC. Takes 800mg ibuprofen when in a flare up. Additionally notes sicca symptoms, mouth sores, dyspnea (continues to smoke) and cyanosis of the toes. There are chronic OA and RA changes of the hands with synovitis and joint tenderness. CDAI 32. Will pursue updated imaging, including a right hand US, to establish severity of her RA disease. Reviewed 02/2022 labs which were stable. Recommend initiating treatment with Rinvoq 15mg once daily as she has no contraindications, tolerated Xeljanz in the past and it may be covered by insurance - reviewed the potential side effects including but not limited to URIs, nausea, elevated LFTs and anemias. She was amenable to the plan and was provided with 2 months worth of Rinvoq samples. Will call her with results of her imaging and start approval process for Rinvoq. Continue 20mg LEF daily and 7.5mg prednisone daily. Per patient her PCP is managing her fibromyalgia and associated treatment (gabapentin 100mg BID, cymbalta 60mg daily, 5mg flexeril prn). Seen with Dr. Robertson. Assessment & Plan (03/29/2022 6:23 PM CDT): Severe rheumatoid arthritis changes. She states she has had a flare pretty much since December. Dr. Chavis gave her a small short dose of 20 x 2 days 10 x 2 days etc. and taper down to it back to her 5 mg daily. She states that helped some but she still has quite a bit of inflammatory areas in her feet and her toes in her knee and in her hands. She is quite miserable. She needs to reestablish with a new wood piler that unsure how long that will be. Will increase to 7.5 daily and see if helps with flair. Continue other medications as prescribed. Will refer to [facility] for further evaluation status Medicare Assessment & Plan (01/06/2022 8:00 PM CDT): Patient appears to be in a flare. She is planning on getting injection from the Orthopedics into the shoulder. Encouraged her to follow-up with Dr. Chavis for any additional guidance as to how to maneuver this flare and the plan for her medications. She is to call if she has any other questions or concerns Assessment & Plan (10/03/2021 4:51 PM NUTRITION TECH): Continue per Dr. Chavis. Continue leflunomide prednisone and Actemra I continue to refill her hydrocodone as she has crippling rheumatoid arthritis that is been very difficult to treat Assessment & Plan (05/17/2021 9:36 PM CDT): Continue per Dr. Chavis Assessment & Plan (01/19/2021 10:52 PM CDT): Continue per Dr. Chavis Assessment & Plan (09/21/2020 5:41 PM NUTRITION TECH): Continue per Rheumatology Continue with the hydrococone and flexeril prn Assessment & Plan (06/08/2020 9:43 AM CDT): Continue per Rheumatology Assessment & Plan (02/27/2020 8:59 AM CDT): Encouarged patient to call her Rheum and let them know about the sxs she is experiencing after her injections. Pt states she needs PPD done. Advised may do it here, but call ahead so we can plan to correct date to read. Assessment & Plan (12/01/2019 11:46 PM NUTRITION TECH): Continue per Risk And Insurance Manager Assessment & Plan (09/16/2019 8:56 PM NUTRITION TECH): Continue per Rheumoatology. Assessment & Plan (08/04/2019 8:14 PM CDT): Continue with Dr. Chavis's replacement for now. Patient would like to find provider at [place] so her care is in one system. Will make referral to Dr. Rob or associate. Hyperglycemia 07/24/2019 Assessment & Plan (11/25/2024 11:52 PM NUTRITION TECH): Check labs Assessment & Plan (02/21/2024 11:18 AM CDT): Last labs: glucose 100. No action to be taken at this moment as patient is encouraged to gain weight due to BMI and high risk for osteoporosis. Continue to monitor labs. Assessment & Plan (01/04/2024 6:18 PM CDT): Check labs Assessment & Plan (03/29/2022 6:21 PM CDT): Check labs. She is on daily steroid increases her risk for prediabetes. Assessment & Plan (10/03/2021 4:51 PM NUTRITION TECH): Pre-diabetes/hyperglycemia is a precursor to Dm. Stressed importance of working on diet (decrease your simple sugars and one carbohydrate with each meal) and increase you exercise to achieve weight loss and this will help prevent you from progressing to diabetes. Assessment & Plan (05/17/2021 9:34 PM CDT): Pre-diabetes/hyperglycemia is a precursor to Dm. Stressed importance of working on diet (decrease your simple sugars and one carbohydrate with each meal) and increase you exercise to achieve weight loss and this will help prevent you from progressing to diabetes. Assessment & Plan (01/19/2021 10:52 PM CDT): Pre-diabetes/hyperglycemia is a precursor to Dm. Stressed importance of working on diet (decrease your simple sugars and one carbohydrate with each meal) and increase you exercise to achieve weight loss and this will help prevent you from progressing to diabetes. Assessment & Plan (09/21/2020 5:36 PM NUTRITION TECH): Pre-diabetes is a precursor to Dm. Stressed importance of working on diet (decrease your simple sugars and one carbohydrate with each meal) and increase you exercise to achieve weight loss and this will help prevent you from progressing to diabetes. Pt also on steroids so monitor closely Assessment & Plan (09/16/2019 8:54 PM NUTRITION TECH): Check labs. Assessment & Plan (08/04/2019 8:06 PM CDT): Pre-diabetes is a precursor to Dm. Stressed importance of working on diet (decrease your simple sugars and one carbohydrate with each meal) and increase you exercise to achieve weight loss and this will help prevent you from progressing to diabetes. Mixed hyperlipidemia 07/24/2019 Assessment & Plan (01/28/2025 12:41 AM CDT): Encouraged patient to follow low fat/low chol diet like the Mediterranean diet. Increase good fats in the diet. Increase exercise. Monitor labs as needed. Continue Crestor 10 Assessment & Plan (11/25/2024 11:53 PM NUTRITION TECH): Encouraged patient to follow low fat/low chol diet like the Mediterranean diet. Increase good fats in the diet. Increase exercise. Monitor labs as needed. Continue Crestor 10 Assessment & Plan (09/27/2024 1:01 PM NUTRITION TECH): Encouraged patient to follow low fat/low chol diet like the Mediterranean diet. Increase good fats in the diet. Increase exercise. Monitor labs as needed. Continue Crestor 10 Assessment & Plan (02/21/2024 12:12 PM CDT): Encouraged to adopt a diet like the Mediterranean diet that is rich in fruits, vegetables, healthy fats, and protein. Recommended daily exercise. Assessment & Plan (01/04/2024 6:19 PM CDT): Encouraged patient to follow low fat/low chol diet like the Mediterranean diet. Increase good fats in the diet. Increase exercise. Monitor labs as needed. Assessment & Plan (04/10/2023 7:33 PM CDT): Encouraged patient to follow low fat/low chol diet like the Mediterranean diet. Increase good fats in the diet. Increase exercise. Monitor labs as needed. Assessment & Plan (09/25/2022 7:42 PM NUTRITION TECH): Encouraged patient to follow low fat/low chol diet like the Mediterranean diet. Increase good fats in the diet. Increase exercise. Monitor labs as needed. Continue statin Assessment & Plan (03/29/2022 6:22 PM CDT): Encouraged patient to follow low fat/low chol diet like the Mediterranean diet. Increase good fats in the diet. Increase exercise. Monitor labs as needed. Assessment & Plan (10/03/2021 4:53 PM NUTRITION TECH): Encouraged patient to follow fat/low chol diet like the Mediterranean diet. Increase good fats in the diet. Increase exercise. Monitor labs as needed. Assessment & Plan (05/17/2021 9:34 PM CDT): Encouraged patient to follow fat/low chol diet like the Mediterranean diet. Increase good fats in the diet. Increase exercise. Monitor labs as needed. Diet controlled Assessment & Plan (01/19/2021 10:52 PM CDT): Encouraged patient to follow fat/low chol diet like the Mediterranean diet. Increase good fats in the diet. Increase exercise. Monitor labs as needed. Assessment & Plan (09/21/2020 5:37 PM NUTRITION TECH): Encouraged patient to follow fat/low chol diet like the Mediterranean diet. Increase good fats in the diet. Increase exercise. Monitor labs as needed. Assessment & Plan (09/16/2019 8:54 PM NUTRITION TECH): Encouraged patient to continue low fat/low chol diet. Continue exercise. Increase good fats in the diet. Monitor labs as needed. Managing with diet at this point. Assessment & Plan (08/04/2019 8:06 PM CDT): Encouraged patient to continue low fat/low chol diet. Continue exercise. Increase good fats in the diet. Monitor labs as needed. Vitamin D deficiency 07/24/2019 Assessment & Plan (01/28/2025 12:40 AM CDT): Supplement Assessment & Plan (01/04/2024 6:09 PM CDT): Supplement Assessment & Plan (04/10/2023 7:33 PM CDT): Supplement Assessment & Plan (09/25/2022 7:43 PM NUTRITION TECH): Supplement Assessment & Plan (03/29/2022 6:22 PM CDT): Supplement calcium Assessment & Plan (10/03/2021 4:53 PM NUTRITION TECH): Supplement Assessment & Plan (05/17/2021 9:34 PM CDT): supplement Assessment & Plan (01/19/2021 10:51 PM CDT): supplement Assessment & Plan (09/21/2020 5:40 PM NUTRITION TECH): supplement Assessment & Plan (12/01/2019 11:44 PM NUTRITION TECH): supplement Assessment & Plan (09/16/2019 8:53 PM NUTRITION TECH): supplement Assessment & Plan (08/04/2019 8:03 PM CDT): supplement Other specified disorders of bone density and structure, left lower leg 11/09/2018 Overview (02/24/2025): (-2.0) DXA 2018 Other amnesia 09/13/2018 Fibromyalgia 07/24/2018 Rotator cuff arthropathy 07/24/2018 Emphysema lung 12/28/2017 Assessment & Plan (01/28/2025 12:40 AM CDT): Long-term smoker. Continue Breztri and ProAir Assessment & Plan (09/27/2024 1:04 PM NUTRITION TECH): Patient has been a long-time smoker. Imaging has shown emphysema and she is noting increased SOB. She had a chest CT abdomen and pelvis when we diagnosed her aneurysm that needed immediate repair in January. There was bronchiectasis as well as small nodules in the right middle lobe and possible infection. She was to repeat it in 3-6 months. Will get this ordered to follow-up. She was not able to tolerate the breasts tree. Encouraged her to try again. Will refer to pulmonology for assistance. Assessment & Plan (05/06/2024 11:58 PM CDT): Patient's breathing is back to baseline. Strongly encouraged complete smoking cessation. Assessment & Plan (04/20/2024 11:03 AM CDT): Stable at baseline -cont home PRN albuterol -pulm hygiene Depression 11/10/2016 Tobacco abuse 2016 Current chronic use of systemic steroids 015 Resolved Problems Problem Noted Date Diagnosed Date Resolved Date Hematoma, nontraumatic, soft tissue 11/25/2024 01/28/2025 Assessment & Plan (11/25/2024 11:54 PM NUTRITION TECH): Hematoma has fully resolved. No residual changes. She had a large purse with her today and I suspect the causative agent may have been the purse. It had metal rings at held the handle on and those she tucked underneath her armpit and I wonder if she pinched her own skin because she is so thin and if this created a hematoma under the skin that bled into itself due to being on Xarelto. Patient thinks this maybe it and will take caution with that person. ABLA (acute blood loss anemia) 04/20/2024 09/27/2024 Assessment & Plan (04/20/2024 11:04 AM CDT): Intra-op EBL ~700cc. Received 1u RBCs intra-op -daily CBC -hgb remains ~11 (within her baseline) -No s/s bleeding, no indication for transfusion, continue to monitor closely Acute lower limb ischemia 04/20/2024 Assessment & Plan (04/22/2024 8:27 AM CDT): Presented with thrombosis of the left iliac limb of her EVAR. The patient has acute limb ischemia. She will need to go to the OR emergently for a thrombectomy of the left iliac limb of her endovascular graft. -OR 04/19 for left FEA with patch angioplasty, left iliac thrombectomy, balloon angioplasty and stenting - Q4 neurovascular checks - 04/19: Arterial line removed - Continue ASA 81mg daily -PT/OT Cold left foot 04/18/2024 04/20/2024 Assessment & Plan (04/18/2024 5:05 PM CDT): Patient is status post triple a repair on 03/28/2024. She presents today with shortness of breaths as well as a foot on the left that seems to be cooler and a more bluish hue in the morning. I am unable to palpate pulses in the office. She is also short of breath. PERC rule for pulmonary embolism can not rule it out with her being over 50yo, heart rate over 100 as well as history of recent vascular surgery.WELLS Criteria is 3pts Discussed with patient that I would recommend additional workup of her shortness of breath to rule out infection versus pulmonary embolism versus COPD exacerbation versus other etiology. Advised with it being the end of the day it is difficult to get this imaging done. She would also benefit from additional workup for this cold foot that I am unable to obtain pulses on based on her recent surgery. Encouraged her to go to the ER for further evaluation. She is in agreement with the plan and plans to go to [facility] and will probably have her son take her immediately. Will await ER recommendation Medicare annual wellness visit, subsequent 01/04/2024 04/18/2024 Assessment & Plan (01/04/2024 6:19 PM CDT): Encouraged healthy lifestyle, good nutrition and exercise. Encouraged Calcium and Vitamin D and weight bearing exercise for bone health. Reviewed immunizations. Reviewed age appropirate screenings. Medicare Wellness Documentation is completed within the chart Abdominal aortic aneurysm (A AA) 3.0 cm to 5.0 cm in diameter in female 01/04/2024 01/04/2024 Assessment & Plan (01/04/2024 6:51 PM CDT): Incidental finding:\ 09/2022 -- CT abd/pelvis IMPRESSION: No acute fracture Aneurysmal dilatation of the abdominal aorta measuring a maximum of 3.6 cm Need to get imaging. Rheumatoid arthritis involvi ng hand with positive rheumatoid factor 07/05/2023 07/05/2023 BMI 21.0-21.9, adult 06/29/2023 024 Assessment & Plan (06/10/2024 7:44 PM CDT): Weight/BMI is in healthy range. Continue healthy lifestyle to maintain. Assessment & Plan (05/06/2024 11:57 PM CDT): Weight/BMI is in healthy range. Continue healthy lifestyle to maintain. Assessment & Plan (02/21/2024 11:24 AM CDT): Weight/BMI is within normal range. Patient encouraged to maintain a healthy diet and exercise regularly. Assessment & Plan (01/04/2024 6:18 PM CDT): Weight/BMI is in healthy range. Continue healthy lifestyle to maintain. Assessment & Plan (06/29/2023 9:01 AM CDT): Weight/BMI is in healthy range. Continue healthy lifestyle to maintain. BMI 22.0-22.9, adult 03/24/2023 023 Assessment & Plan (03/24/2023 10:38 AM CDT): Weight/BMI is in healthy range. Continue healthy lifestyle to maintain. Cigarette smoker 03/24/2023 06/29/2023 Assessment & Plan (04/10/2023 7:35 PM CDT): Encouraged smoking cessation. Discussed 3 minutes. Reviewed options for assistance with cessation. 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 Pt declines assistance at this time but may contact the office at anytime for further help as they desire. Positive colorectal cancer s creening using Cologuard test 01/16/2023 07/05/2023 Assessment & Plan (01/16/2023 6:33 PM CDT): Reviewed with patient the positive Cologuard. This does not mean the patient has cancer--- This means the lab saw something that was suspicious and further investigation is needed to determined what was seen in the stool sample. It could be cancer, but it could also be a completely benign change. The patient will need a colonoscopy which will allow the provider to see inside the colon and sample any suspicious areas to determine the reason for the positive. Patient would like to see Dr. Godwin. Referral completed Colon cancer screening 09/25/202204/10 Assessment & Plan (09/25/2022 7:44 PM NUTRITION TECH): Will go ahead and send order for Cologuard. Will be due in November of 2022. Medicare annual wellness visit, subsequent 09/25/2022 04/10/2023 Assessment & Plan (09/25/2022 7:44 PM NUTRITION TECH): Encouraged healthy lifestyle, good nutrition and exercise. Encouraged Calcium and Vitamin D and weight bearing exercise for bone health. Reviewed immunizations. Reviewed age appropirate screenings. Medicare Wellness Documentation is completed within the chart BMI 21.0-21.9, adult 09/23/2022 023 Assessment & Plan (09/23/2022 9:33 AM NUTRITION TECH): Weight/BMI is in healthy range. Continue healthy lifestyle to maintain. Body mass index (BMI) 20.0-20.9, adult 03/29/2022 07/11/2022 Assessment & Plan (07/11/2022 7:13 PM CDT): Weight/BMI is in healthy range. Continue healthy lifestyle to maintain. Assessment & Plan (03/29/2022 6:24 PM CDT): Weight/BMI is in healthy range. Continue healthy lifestyle to maintain. BMI 20.0-20.9, adult 01/06/2022 Assessment & Plan (07/11/2022 7:13 PM CDT): Weight/BMI is in healthy range. Continue healthy lifestyle to maintain. Assessment & Plan (03/29/2022 9:11 AM CDT): Weight/BMI is in healthy range. Continue healthy lifestyle to maintain. Assessment & Plan (01/06/2022 8:43 AM CDT): Weight/BMI is in healthy range. Continue healthy lifestyle to maintain. Upper respiratory infection 01/06/2022 03/26/2022 Assessment & Plan (01/06/2022 8:08 PM CDT): Start antibiotic, antihistamine (Claritin OR Zyrtec), Mucinex 12hour and Steroid nasal spray (Flonase). Push fluids. Rest. Supportive care. If sxs worsen or don\'t improve, pt is to followup in the office. She can continue with the albuterol p.r.n.. May consider unhealed steroid product as it seems as though her COPD may be progressing and this could be upper respiratory infection viruses COPD exacerbation. Per symptoms worsen or do not improve she is to contact the office immediately. She voices understanding BMI 20.0-20.9, adult 09/14/2021 022 Assessment & Plan (09/14/2021 11:48 AM NUTRITION TECH): Weight/BMI is in healthy range. Continue healthy lifestyle to maintain. Medicare annual wellness visit, subsequent 09/13/2021 01/06/2022 Assessment & Plan (10/03/2021 4:54 PM NUTRITION TECH): Encouraged healthy lifestyle, good nutrition and exercise. Encouraged Calcium and Vitamin D and weight bearing exercise for bone health. Reviewed immunizations. Reviewed age appropirate screenings. Medicare Wellness Documentation is completed within the chart Rheumatoid arthritis involvi ng hand with positive rheumatoid factor 05/17/2021 04/10/2023 Assessment & Plan (01/16/2023 6:33 PM CDT): Continue per [facility]. Patient has been in contact with them letting them know that I do not have privileges at [facility] to assist in getting the osteoporosis infusions done. Advised would have to go to [place] or 2 location of their choice. She states she is working with them to get this taken care of. I apologize that I do not have privileges but it means that I am unable to order infusions. Assessment & Plan (09/25/2022 7:43 PM NUTRITION TECH): Continue per Rheumatology Assessment & Plan (07/11/2022 7:13 PM CDT): Continue per [facility]. She is still on prednisone along with additional rheumatoid agents. I will continue to fill her hydrocodone Assessment & Plan (03/29/2022 6:23 PM CDT): Severe rheumatoid arthritis changes. She states she has had a flare pretty much since December. Dr. Chavis gave her a small short dose of 20 x 2 days 10 x 2 days etc. and taper down to it back to her 5 mg daily. She states that helped some but she still has quite a bit of inflammatory areas in her feet and her toes in her knee and in her hands. She is quite miserable. She needs to reestablish with a new wood piler that unsure how long that will be. Will increase to 7.5 daily and see if helps with flair. Continue other medications as prescribed. Will refer to [facility] for further evaluation status Assessment & Plan (01/06/2022 8:06 PM CDT): Patient's wood piler is Dr. Chavis. She appears she is having a failure right now so encouraged her to contact Dr. Chavis for further advice as to management. She is currently on prednisone 5 mg as her normal baseline. She did double up around the 1st day that she had the increased symptoms in her shoulder but has returned back to the [address] Chavis office request. She plans to follow-up with ortho for injection as soon as she can get in. She is using hydrocodone currently for the pain along with Neurontin. She is also on Cymbalta 60. Assessment & Plan (10/03/2021 4:53 PM NUTRITION TECH): [facility] rheumatoid arthritis Assessment & Plan (05/17/2021 9:36 PM CDT): Continue per Dr. Chavis Medicare annual wellness visit, initial 09/21/2020 09/13/2021 Assessment & Plan (09/21/2020 5:38 PM NUTRITION TECH): Encouraged healthy lifestyle, good nutrition and exercise. Encouraged Calcium and Vitamin D and weight bearing exercise for bone health. Reviewed immunizations. Reviewed age appropirate screenings. Medicare Wellness Documentation is completed within the chart Acute non-recurrent pansinusitis 09/16/2020 03/26/2022 Assessment & Plan (05/17/2021 9:34 PM CDT): Start antibiotic, antihistamine (Claritin OR Zyrtec), Mucinex 12hour and Steroid nasal spray (Flonase). Push fluids. Rest. Supportive care. If sxs worsen or don\'t improve, pt is to followup in the office. Assessment & Plan (09/16/2020 3:05 PM NUTRITION TECH): Will send patient to [facility] for Covid-19 testing. The patient was advised to quarantine at least 10 days from symptom onset, but this determination will depend on result of testing. They were advised to contact us in the next 72h if they have not heard results of testing. They were advised to report to the ER if worsening. Needs flu shot 08/21/2020 01/19/2021 Assessment & Plan (09/21/2020 5:39 PM NUTRITION TECH): Updated in the office today BMI 20.0-20.9, adult 08/21/2020 021 Assessment & Plan (01/19/2021 9:11 AM CDT): Weight/BMI is in healthy range. Continue healthy lifestyle to maintain. Assessment & Plan (09/21/2020 5:38 PM NUTRITION TECH): Weight/BMI is in healthy range. Continue healthy lifestyle to maintain. Primary osteoarthritis of right knee 06/11/2020 09/27/2024 Pain and swelling of knee 02/27/2020 Assessment & Plan (02/27/2020 8:58 AM CDT): Probably related to the RA as know recent fall/injury. Recommend to call EVA Russell to see if can be evaluated. Body mass index (BMI) 19.9 or less, adult 12/17/2019 08/21/2020 Assessment & Plan (06/04/2020 9:45 AM CDT): BMI Follow-up includes: Discussed diet and exercising counseling. Assessment & Plan (12/17/2019 11:26 PM NUTRITION TECH): Weight/BMI is in lower range. Continue healthy lifestyle to maintain and increase weight. Right foot pain 12/17/2019 09/27/2024 Assessment & Plan (12/17/2019 11:24 PM NUTRITION TECH): See ankle pain Acute right ankle pain 12/17/201909/27 Assessment & Plan (12/17/2019 11:24 PM NUTRITION TECH): Keep foot elevated. Ice as able as has raynauds so must be careful/cautious. Await xray report Annual physical exam 12/01/2019 020 Assessment & Plan (12/01/2019 11:47 PM NUTRITION TECH): Send cologuard order as due to repeat BMI 20.0-20.9, adult 11/22/2019 024 Welcome to Medicare preventive visit 09/16/2019 12/01/2019 Assessment & Plan (09/16/2019 9:06 PM NUTRITION TECH): Encouraged healthy lifestyle, good nutrition and exercise. Encouraged Calcium and Vitamin D and weight bearing exercise for bone health. Reviewed immunizations Reviewed age appropirate screenings. Documentation is on the chart. POLST forms discussed and provided. EKG baseline completed and recorded in chart. Breast cancer screening by mammogram 09/16/2019 09/27/2024 Assessment & Plan (02/21/2024 11:34 AM CDT): Mamm scheduled for 03/16/2024 Assessment & Plan (01/04/2024 6:19 PM CDT): Check labs Assessment & Plan (07/11/2022 7:12 PM CDT): Mammogram order provided Assessment & Plan (03/29/2022 6:22 PM CDT): Mammogram order provided. She is scheduled at [facility] Assessment & Plan (01/19/2021 10:52 PM CDT): Mammogram order provided Assessment & Plan (09/16/2019 8:58 PM NUTRITION TECH): Mammogram order provided. Other fatigue 09/16/2019 08/21/2020 Assessment & Plan (09/16/2019 8:58 PM NUTRITION TECH): Probably multifactorial. Check labs and followup to re-evaluate Osteopenia of multiple sites 07/24/2019 06/24/2025 Assessment & Plan (02/21/2024 11:30 AM CDT): Managed by rheumatology. Continue Ca-VitD and Prolia injections. Assessment & Plan (09/25/2022 7:41 PM NUTRITION TECH): Managed by Rheumatology. Currently on calcium vitamin-D and exercises as tolerated. Assessment & Plan (03/29/2022 6:20 PM CDT): Patient to recheck DEXA. She is taking calcium and vitamin-D. She is on daily prednisone so she is at high risk for fracture. She states she did what sounds like Reclast x1 with Dr. Chavis but had a reaction so has not had any additional treatment. Will need to look into this further but regardless he DEXA determine any change. Assessment & Plan (10/03/2021 4:51 PM NUTRITION TECH): Dr. Chavis is still working on trying to get Prolia for osteopenia. Assessment & Plan (12/01/2019 11:46 PM NUTRITION TECH): Continue calcium, vitamin D and exercise. Is on daily steroid and is a smoker and weight is less than 126# so she has multiple risk factors for osteoporosis. She can't tolerate Bisphosphonates. Would benefit from starting Prolia. Will see if can get approved with her Medicare as medicaid would not cover. Assessment & Plan (09/16/2019 8:54 PM NUTRITION TECH): Recheck DXA. Continue calcium and vitamin D. She is at high risk for fracture as she is a smoker on daily steroids and is light weight. She would benefit from Prolia. Will obtain DXA and followup to see if new insurance will cover. Assessment & Plan (08/04/2019 8:05 PM CDT): Last DXA fall of 2017. Still osteopenic. Needs Prolia. Hasn't been able to get coverage with her previous insurance. Will try again. Cigarette smoker 07/24/2019 03/24/2023 Assessment & Plan (01/23/2023 9:41 AM CDT): Encouraged smoking cessation. Discussed 3 minutes. Reviewed options for assistance with cessation. Reviewed usp sequela associated with smoking. Pt declines assistance at this time but may contact the office at anytime for further help as they desire. LDCT due after 02/16/2023 at [facility] Assessment & Plan (09/25/2022 7:42 PM NUTRITION TECH): Encouraged smoking cessation. Discussed 3 minutes. Reviewed options for assistance with cessation. Reviewed usp sequela associated with smoking. Pt declines assistance at this time but may contact the office at anytime for further help as they desire. Assessment & Plan (07/11/2022 7:12 PM CDT): Encouraged smoking cessation. Discussed 3 minutes. Reviewed options for assistance with cessation. Reviewed usp sequela associated with smoking. Pt declines assistance at this time but may contact the office at anytime for further help as they desire. Assessment & Plan (04/13/2022 8:47 PM CDT): Encouraged smoking cessation as it is a known contributor to joint pain and is likely decreasing the effectiveness of her immunosuppressive medications. She verbalized understanding but did not seem interested in quitting at this time. Assessment & Plan (03/29/2022 6:21 PM CDT): Encouraged smoking cessation. Discussed 3 minutes. Reviewed options for assistance with cessation. Reviewed usp sequela associated with smoking. Pt declines assistance at this time but may contact the office at anytime for further help as they desire. Low-dose CT completed in January of 2022. Due to repeat in 1 year for routine screening Assessment & Plan (01/06/2022 8:03 PM CDT): Encouraged smoking cessation. Discussed 3 minutes. Reviewed options for assistance with cessation. Reviewed usp sequela associated with smoking. Pt declines assistance at this time but may contact the office at anytime for further help as they desire. Will order low-dose CT. Discussed with patient Lung Cancer screening options with the patient. Encouraged LowDose CT Patient is between 55 - 77 yo. Is a current smoker or quit in the last 15 years. Has a 30+pack years smoking history. Is currently without any signs or symptoms of lung cancer. Is willing to consider curative lung surgery if needed. [id number] Assessment & Plan (10/03/2021 4:52 PM NUTRITION TECH): Encouraged smoking cessation. Discussed 3 minutes. Reviewed options for assistance with cessation. Reviewed usp sequela associated with smoking. Pt declines assistance at this time but may contact the office at anytime for further help as they desire. Assessment & Plan (09/21/2020 5:38 PM NUTRITION TECH): Encouraged smoking cessation. Discussed 3 minutes. Reviewed options for assistance with cessation. 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 Pt declines assistance at this time but may contact the office at anytime for further help as they desire. Assessment & Plan (06/08/2020 9:44 AM CDT): Encouraged smoking cessation. Discussed 3 minutes. Reviewed options for assistance with cessation. Reviewed usp sequela associated with smoking. Pt declines assistance at this time but may contact the office at anytime for further help as they desire. Assessment & Plan (12/01/2019 11:47 PM NUTRITION TECH): Encouraged smoking cessation. Discussed 3 minutes. Reviewed options for assistance with cessation. Reviewed usp sequela associated with smoking. Pt declines assistance at this time but may contact the office at anytime for further help as they desire. Assessment & Plan (09/16/2019 8:58 PM NUTRITION TECH): Encouraged smoking cessation. Discussed 3 minutes. Reviewed options for assistance with cessation. Reviewed usp sequela associated with smoking. Pt declines assistance at this time but may contact the office at anytime for further help as they desire. Assessment & Plan (08/04/2019 8:07 PM CDT): Encouraged smoking cessation. Discussed 3 minutes. Reviewed options for assistance with cessation. 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 Pt declines assistance at this time but may contact the office at anytime for further help as they desire. Lung nodule 07/24/2019 09/27/2024 Overview (03/29/2022): LDCT 06/2017: 4mm nodule. Need to repeat 06/2018 - No nodule appreciated. 01/2022 -- LDCT --->Benign changes. Repeat in 01/2023 Assessment & Plan (07/05/2023 11:29 AM CDT): Low-dose CT follow-up ordered in January. Awaiting appointment Assessment & Plan (04/10/2023 7:34 PM CDT): LDCT 06/2017: 4mm nodule. Need to repeat 06/2018 - No nodule appreciated. 01/2022 -- LDCT --->Benign changes. Repeat in 01/[address] Low-[address] has already been prior Auth with her insurance. Encourage patient to get this scheduled quickly so that it does not . Assessment & Plan (08/04/2019 8:02 PM CDT): Need repeat CT to monitor the lung nodule. Encouraged smoking cessation. Not ready at this point. Primary osteoarthritis of both shoulders 07/24/2019 09/27/2024 Assessment & Plan (08/12/2022 11:05 AM CDT): Moderate ttp of the R glenohumeral joint on exam with crepitus on ROM testing. Previous imaging with moderate OA of R shoulder and mild of L shoulder. She was previously told by orthopedist she needs to have R total shoulder replacement. Encouraged follow up with orthopedist - may benefit from steroid injection. Assessment & Plan (09/16/2019 8:54 PM NUTRITION TECH): Continue with Ortho. Assessment & Plan (08/04/2019 8:05 PM CDT): Severe. Followup with Ortho as has had injection with some relieft in the past Body mass index (BMI) of 19. 0 to 19.9 in adult 07/24/2019 12/01/2019 Assessment & Plan (09/16/2019 8:57 PM NUTRITION TECH): Weight/BMI is in low range. Continue healthy lifestyle to maintain/increase weight. Assessment & Plan (08/04/2019 8:07 PM CDT): Weight/BMI is in low range. Continue healthy lifestyle to maintain and try to increase Encounters Date Type Department Care Team Description 07/29/2025 Orders Only [facility] [address] [place] [phone] Rizwana Marie PA Postmenopausal osteoporosis (Primary Dx) 07/29/2025 Telephone [facility] [address] [place] [phone] Mildred Norris 07/23/2025 Orders Only [facility] [address] [place] [phone] Tigist Schroeder PA Chronic bilateral low back pain without sciatica 07/19/2025 9:00 AM CDT Office Visit [facility] [address] [facility] [address] [place] [phone] Tigist Schroeder PA Rheumatoid arthritis involving multiple sites with positive rheumatoid factor (HCC) (Primary Dx); Chronic pain syndrome; Chronic bilateral low back pain without sciatica; Chronic obstructive pulmonary disease, unspecified COPD type (HCC); Gastroesophageal reflux disease without esophagitis; Tobacco abuse; Breast cancer screening by mammogram; BMI 22.0-22.9, adult 07/01/2025 Orders Only [address] [id number] Ruba Avendano RN 06/28/2025 Orders Only [facility] [address] [place] [phone] Rizwana Marie PA 06/26/2025 Results Follow-Up [address] [phone] Rizwana Marie PA CBC with auto differential, Comprehensive metabolic panel, Erythrocyte sedimentation rate, Additional followed-up results: 2 06/25/2025 9:30 AM CDT Office Visit [address] [phone] Rizwana Marie PA Rheumatoid arthritis involving multiple sites with positive rheumatoid factor (HCC) (Primary Dx); Postmenopausal osteoporosis; Strain of right hamstring, initial encounter; High risk medication use 06/25/[address] [phone] Mildred Norris; Jorge Approved 06/25/[address] [phone] Luma Simental Please schedule next Prolia. Thank you! 06/06/2025 9:00 AM CDT - 06/06/2025 11:59 PM CDT Hospital Encounter [facility] [id number] [place] [address] Laine Martinez RN Rheumatoid arthritis involving multiple sites with positive rheumatoid factor (HCC) (Primary Dx) Discharge Disposition: Discharge to home or self care 05/30/2025 Orders Only [facility] [address] [facility] [address] [place] [phone] Tigist Schroeder PA 05/17/2025 Orders Only [facility] [address] [place] [phone] Arian Robertson MD 05/09/2025 8:58 AM CDT - 05/09/2025 11:59 PM CDT Hospital Encounter [address] [address] Rheumatoid arthritis involving multiple sites with positive rheumatoid factor (HCC) (Primary Dx) Discharge Disposition: Discharge to home or self care 05/06/2025 9:30 AM CDT Office Visit [facility] Medicine Surgery [id number] [place] [address] [address] [place] [phone] Truman Jorge MD Infrarenal abdominal aortic aneurysm (AAA) without rupture (Primary Dx); Atherosclerosis of tanana artery of both lower extremities with intermittent claudication 05/06/2025 8:45 AM CDT Ancillary Procedure [facility] Vascular Lab [id number] [place] [address] Office [address] [place] [phone] Atherosclerosis of tanana artery of both lower extremities with intermittent claudication 05/06/2025 8:00 AM CDT Ancillary Procedure [facility] [address] [place] [address] [address] [place] [phone] Infrarenal abdominal aortic aneurysm (AAA) without rupture from Last 3 Months Immunizations Immunization Administration Dates Next Due Influenza, Quadrivalent, Hig h Dose, Preservative Free, Intrr 08/21/2020,07/31/2019 Influenza, Quadrivalent, Spl it, Preservative Free, Intramuscular 08/16/2018,08/16/2018,08/11/2016 Influenza, Trivalent, High D ose, Split, Preservative Free, Intramuscular 07/31/2019,07/31/2019 Influenza, Trivalent, Split, Preservative Free, Intradermal 10/12/2017 Influenza, Unspecified 10/24/2024(Deferr ed: Patient Refused),10/24/2023(Deferred: Patient Refused),10/24/2023(Deferred: Patient Refused),10/24/2023(Deferred: Patient Refused),10/24/2023(Deferred: Patient Refused),11/24/2022(Deferred: Patient Refused),09/22/2022(Deferred: Patient Refused),01/06/2022(Deferred: Patient Refused),11/24/2021(Deferred: Patient Refused),10/12/2017,10/29/2015 Pneumococcal Polysaccharide PPV23 12/28/2017,04/2018 Tdap 04/20/2016 Surgical History Surgery Date Site/Laterality Comments CYST REMOVAL CARPAL TUNNEL RELEASE 10/24/2014 - 10/23/2015 COLONOSCOPY UPPER GASTROINTESTINAL ENDOSCOPY BREAST BIOPSY ILIAC ARTERY STENT 04/19/2024 Bilateral AORTIC ANEURYSM REPAIR 03/28/2024 ABDOMINAL SURGERY 04/20/24 TUBAL LIGATION 1976 Medical History Medical History Date Comments Gout Rheumatoid arteritis (HCC) Fibromyalgia Osteoarthrosis Hyperlipidemia Anemia Broken ankle 12/16/2019 Right GERD (gastroesophageal reflux disease) COPD (chronic obstructive pulmonary disease) Depression Osteoporosis Heart disease Autoimmune disease Glaucoma Family History Medical History Relation Name Comments Cancer Brother Chris Depression Daughter Renae Hypertension Daughter Renae Lyme Disease Daughter Renae Cancer Father Thiago No Known Problems Mother Arthritis Mother's Sister 1 Aunt Rheum arthritis Mother's Sister 1 Aunt Arthritis Mother's Sister 2 Evelin Arthritis Other family history Cancer Other family history Gout Other family history Heart attack Paternal Grandfather Thiago Diabetes Son Reagan Hypertension Son Reagan Relation Name Status Comments Brother Chris Daughter Renae Father Thiago Mother Mother's Sister 1 Aunt Mother's Sister 2 Evelin Alive Other family history Paternal Grandfather Thiago Alive Son Reagan Alive Social History Tobacco Use Types Packs/Day Years Used Date Smoking Tobacco: Every Day Cigarettes 0.9 51.4 Started: 03/22/1974 Smokeless Tobacco: Current Tobacco Cessation:Ready to Q uit: No; Counseling Given: Not Answered Alcohol Use Standard Drinks/Week Comments Not Currently 0 (1 standard drink = 0.6 oz pur e alcohol) [facility] Utilities Answer Date Recorded In the past [...] often do you attend chur ch or gnosticist services? 1 to 4 times per year 04/20/2024 Do you belong to any clubs o r organizations such as yarsanism groups, unions, fraternal or athletic groups, or school groups? No 04/20/2024 How often do you attend meet ings of the clubs or organizations you belong to? Never 04/20/2024 Are you , , di vorced, , never , or living with a partner? 04/20/2024 Overall Financial Resource Strain (CARDIA) Answe r Date Recorded How hard is it for you to pa y for the very basics like food, housing, medical care, and heating? Not hard at all 04/20/2024 PHQ-2 Answer Date Recorded PHQ-2 Total Score (If total score is 3 or more points, staff should administer the PHQ-9) 0 07/19/2025 Hunger Vital Sign Answer Date Recorded Within [...] any time in the past 12 m [facility], were you homeless or living in a skilled nursing (including now)? No 04/20/2024 AUDIT-C Answer Date Recorded Q1: How often do you have a drink containing alcohol? Never 07/19/2025 Q2: How many drinks containi ng alcohol do you have on a typical day when you are drinking? Patient does not drink Q3: How often do you have si x or more drinks on one occasion? Never 07/19/2025 Personal Safety Answer Date Recorded Have you ever been in or are you currently in a harmful physical or emotional relationship or is someone making you feel afraid or unsafe? Denies 11/05/2024 Comments No Sex and Gender Information Value Date Recorded Sex Assigned at Not on file Legal Sex Female 10:36 AM NUTRITION TECH Gender Identity Not on file Sexual Orientation Not on file Obstetrics History Para Term AB IAB SAB Ectopic Multiple Livin g Live Births 3 Date Outcome GA Total Labor Labor/2nd/3rd Weight Sex Type Anes PTL Nerissa A1 A5 Name Clin Last Filed Vital Signs Vital Sign Reading Time Taken Comments Blood Pressure 142/70 07/19/2025 8:56 AM CDT Pulse 65 07/19/2025 8:56 AM CDT Temperature 36.4 C (97.5 F) 07/19/2025 8:56 AM CDT Respiratory Rate 18 06/06/2025 9:10 AM CDT Oxygen Saturation 98% 07/19/2025 8:56 AM CDT Inhaled Oxygen Concentration - - Weight 50.3 kg (111 lb) 07/19/2025 8:56 AM CDT Height 149.9 cm (4' 11) 07/19/2025 8:56 AM CDT Body Mass Index 22.42 07/19/2025 8:56 AM CDT Plan of Treatment Health Maintenance Due Date Last Done Comments Hepatitis C Screening 1955 Osteoporosis Screening-Bone Density Scan 1955 Hepatitis B Screening 01/27/1972 Zoster Vaccine (1 of 2) 1973 Pneumococcal vaccine 65+ (3 of 3 - PCV) 12/28/2018 12/28/2017, 12/28/2017 Lung Cancer Screening 02/15/2023 02/15/2022 Breast Cancer Screening-Mammogram 03/16/2025 024, 09/04/2022 Influenza Vaccine (#1) 2025 , 07/31/2019, 07/31/2019, Additional history exists Well Visit 65+ 01/16/2026 01/16/2025, 12/22, 09/23/2022, Additional history exists DTaP/Tdap/Td Vaccine (2 - Td or Tdap) 04/20/2026 04/20/2016 Depression Screening 07/19/2026 07/19/2025, 01/16/2025, 11/13/2024, Additional history exists Fall Risk Assessment 07/19/2026 07/19/2025, 01/16/2025, 11/13/2024, Additional history exists Colon Cancer Screening-Colonoscopy 02/16/2033 02/16/2023 Colon Cancer Screening-DNA Stool Discontinued 02/16/2023, 12/27/2022, 12/05/2019 Medical Devices Implanted Type Area Tax Professional Device Identifier Shelf Expiration Date Model / Serial / Lot Medtronic Inc Savanna-Fx 12fr 86cm Endoanchor Cassette Neuro Psych Sales Specialist Internal Clip Evar Sa-85 - [id number] Implanted:Qty: 1 on 03/28/2024 by Truman Jorge MD at [facility] Clip N/A: Aorta Medtronic Inc [id number] 10/06/2025 SA-85 / / [id number] Description:4 clips implante d Medtronic Inc Endurant Iis 14-28mm 18fr 103mm Catheter Radiopaque Self Expand [id number] - [id number] - [id number] Implanted:Qty: 1 on 03/28/2024 by Truman Jorge MD at [facility] Stent N/A: Aorta Med[employer]onic Inc [id number] 03/17/2025 [id number] / [id number] / Medtronic Inc Endurant Ii 16-13mm 14fr 93mm 143mm Radiopaque Contralateral Limb [id number] - [id number] - [id number] Implanted:Qty: 1 on 03/28/2024 by Truman Jorge MD at [facility] Stent Left: External Iliac Artery Medtronic Inc 12/26/2024 [id number] / [id number] / Med[employer]onic Inc Endurant Ii 16-13mm 14fr 82mm Delivery System C Distal [id number] - [id number] - [id number] Implanted:Qty: 1 on 03/28/2024 by Truman Jorge MD at [facility] Stent Right: External Iliac Artery Med[employer]onic Inc 08/07/2025 [id number] / [id number] / [employer] System Closure Repair Femoral Artery Suture Mediated Perclose Prostyle 39913-36 - [id number] Implanted:Qty: 2 on 03/28/2024 by Yvette Roca MD at [facility] Vascular Closure Device Left: Groin [employer] [id number] 12/21/2025 [id number] / / [id number] [employer] System Closure Repair Femoral Artery Suture Mediated Perclose Prostyle 72879-53 - [id number] Implanted:Qty: 2 on 03/28/2024 by Yvette Roca MD at [facility] Vascular Closure Device Right: Groin [employer] [id number] 12/21/2025 22166-42 / / [id number] Biopsy Marker Right: Breast [employer] Inc Endurant Ii Aui 3-Piece Case Endurantiiaui3 - [id number] Implanted:Qty: 1 on 03/28/2024 by Truman Jorge MD at [facility] [employer] Inc ENDURANT [id number] / / Med[employer]onic Inc Visi-Pro 10mm 57mm 80cm Radiopaque Balloon Expand Radial Strength - [id number] Implanted:Qty: 1 on 04/19/2024 by Truman Jorge MD at [facility] Left: Iliac [employer]onic Inc [id number] 01/09/2026 [id number] / / [id number] Med[employer]onic Inc Visi-Pro 10mm 57mm 80cm Radiopaque Balloon Expand Radial Strength - [id number] Implanted:Qty: 1 on 04/19/2024 by Truman Jorge MD at [facility] Left: Iliac [employer] Inc [id number] 04/26/2026 [id number] / / [id number] [employer]ino[employer] Shipster Patch Vascuguard 0.88cm [id number] - [id number] Implanted:Qty: 1 on 04/19/2024 by Truman Jorge MD at [facility] Left: Femoral [employer] [id number] 09/27/2025 [id number] / / [id number] Procedures Procedure Name Priority Date/Time Associated Diagnosis Comments XR SPINE THORACIC 3 VIEWS Schedule Routine, Read Routine (OP Routine) 07/23/2025 1:13 PM CDT Chronic bilateral low back pain without sciatica XR SPINE LUMBAR 2 OR 3 VIEWS Schedule Routine, Read Routine (OP Routine) 07/23/2025 Chronic bilateral low back pain without sciatica VITAMIN D 25 HYDROXY Routine 06/25/2025 9:26 AM CDT Rheumatoid arthritis involving multiple sites with positive rheumatoid factor (HCC) Postmenopausal osteoporosis High risk medication use CRP (ACUTE PHASE) Routine 06/25/2025 9:2 6 AM CDT Rheumatoid arthritis involving multiple sites with positive rheumatoid factor (HCC) Postmenopausal osteoporosis High risk medication use ERYTHROCYTE SEDIMENTATION RATE Routine 06/25/2025 9:26 AM CDT Rheumatoid arthritis involving multiple sites with positive rheumatoid factor (HCC) Postmenopausal osteoporosis High risk medication use COMPREHENSIVE METABOLIC PANEL Routine 06/25/2025 9:26 AM CDT Rheumatoid arthritis involving multiple sites with positive rheumatoid factor (HCC) Postmenopausal osteoporosis High risk medication use CBC WITH AUTO DIFFERENTIAL Routine 06/25/2025 9:26 AM CDT Rheumatoid arthritis involving multiple sites with positive rheumatoid factor (HCC) Postmenopausal osteoporosis High risk medication use US DUPLEX SCAN OF AORTA: INFERIOR VENA CAVA, ILIAC, COMPLETE Schedule Routine, Read Routine (OP Routine) 05/06/2025 9:08 AM CDT Infrarenal abdominal aortic aneurysm (AAA) without rupture US MARIAH Schedule Routine, Read Routine (OP Routine) 05/06/2025 9:08 AM CDT Atherosclerosis of tanana artery of both lower extremities with intermittent claudication SCREENING MAMMOGRAM BILATERAL W MAHESH Schedule Routine, Read Routine (OP Routine) 03/16/2024 8:58 AM CDT Breast cancer screening by mammogram COLONOSCOPY 02/16/2023 8:[address] LUNG CANCER SCREENING Schedule Routine, Read Routine (OP Routine) 02/15/2022 Cigarette smoker from Last 3 Months or Most Recently Relevant to Health Maintenance Results * XR Spine Thoracic 3 Vw (07/23/2025 1:13 PM CDT) Anatomical Region Laterality Modality Spine N/A Radiographic Kika ging Impressions 07/23/2025 1:13 PM CDT No acute abnormality us [facility] IMG XR PROCEDURES Final Re sult * XR Spine Lumbar 2 Or 3 Vw (07/23/2025) Anatomical Region Laterality Modality Spine N/A Radiographic Kika ging 07/23/2025 Impressions 07/23/2025 1:11 PM CDT No acute abnormality us [facility] IMG XR PROCEDURES Final Re sult * (ABNORMAL) CBC with auto differential (06/25/2025 9:26 AM CDT) WBC 12.8(H) 3.8 - 10.8 Thousand/u L [facility] RBC, POC 4.59 3.80 - 5.10 Million/uL [facility] Hgb 14.5 11.7 - 15.5 g/dL [facility] Hct 45.7(H) 35.0 - 45.0 % [facility] MCV 99.6 80.0 - 100.0 fL [facility] MCH 31.6 27.0 - 33.0 pg [facility] MCHC 31.7(L) 32.0 - 36.0 g/dL [facility] Comment: For adults, a slight decrease in the calculated MCHC value (in the range of 30 to 32 g/dL) is most likely not clinically significant; however, it should be interpreted with caution in correlation with other red cell parameters and the patient's clinical condition. Rdw 12.9 11.0 - 15.0 % [facility] Platelets 332 140 - 400 Thousand/u L [facility] MPV 9.9 7.5 - 12.5 fL [facility] Neutrophils, abs 9,651(H) 1,500 - 7,800 cells/uL [facility] Lymphocytes, abs 2,534 850 - 3,900 cells/uL [facility] Monocyte abs 486 200 - 950 cells/uL [facility] Eosinophils, abs 64 15 - 500 cells/uL [facility] Basophils, abs 64 0 - 200 cells/uL [facility] Neutrophils 75.4 % [facility] Lymphocyte pct 19.8 % [facility] Monocytes 3.8 % [facility] Eosinophils 0.5 % [facility] Basophils 0.5 % [facility] Blood 06/25/2025 9:26 AM CDT 06/25/2025 9:27 AM CDT us Rizwana V[facility]ASQUE[facility] LAB BLOOD ORDER MAGUI Final Result [facility] [address] [place] [address] * Vitamin D 25 hydroxy (06/25/2025 9:26 AM CDT) Vitamin D 25-OH 34 30 - 100 ng/mL [facility] Comment: Vitamin D Status 25-OH Vitamin D: Deficiency: <20 ng/mL Insufficiency: 20 - 29 ng/mL Optimal: > or = 30 ng/mL For 25-OH Vitamin D testing on patients on D2-supplementation and patients for whom quantitation of D2 and D3 fractions is required, the QuestAssureD(TM) 25-OH VIT D, (D2,D3), LC/MS/MS is recommended: order code 06361 (patients >2yrs). See Note 1 Note 1 For additional information, please refer to http://education.BONDS.COM/faq/GXB666 (This link is being provided for informational/ educational purposes only.) Blood 06/25/2025 9:26 AM CDT 06/25/2025 9:27 AM CDT Rizwana VELASQUEZ LAB BLOOD ORDER MAGUI Final Result Performing Organization Address City/[facility]/ZIP Co de Phone Number [facility] [address] [place] [address] * Erythrocyte sedimentation rate (06/25/2025 9:26 AM CDT) Pathologist [facility] Erythrocyte sedimentation rate 11 < OR = 30 mm[facility] Blood 06/25/2025 9:26 AM CDT 06/25/2025 9:27 AM CDT Rizwana VELASQUEZ LAB BLOOD ORDER MAGUI Final Result Performing Organization Address City/[facility]/ZIP Co de Phone Number [facility] [address] [place] [address] * (ABNORMAL) CRP (acute phase) (06/25/2025 9:26 AM CDT) C-RP 13.9(H) <8.0 mg/L [facility] Blood 06/25/2025 9:26 AM CDT 06/25/2025 9:27 AM CDT Rizwana VELASQUEZ LAB BLOOD ORDER MAGUI Final Result [facility] [address] [address] [phone] * (ABNORMAL) Comprehensive metabolic panel (06/25/2025 9:26 AM CDT) Glucose 100(H) 65 - 99 mg/dL [facility] Comment: Fasting reference interval For someone without known diabetes, a glucose value between 100 and 125 mg/dL is consistent with prediabetes and should be confirmed with a follow-up test. BUN 12 7 - 25 mg/dL [facility] Creatinine 0.50(L) 0.60 - 1.00 mg/dL [facility] eGFR 100 > OR = 60 mL/min/1.7 3m2 [facility] BUN/creat ratio 24(H) 6 - 22 (calc) [facility] Sodium 142 135 - 146 mmol/L [facility] Potassium, pl 4.5 3.5 - 5.3 mmol/L [facility] Chloride 105 98 - 110 mmol/L [facility] CO2 29 20 - 32 mmol/L [facility] Calcium 9.3 8.6 - 10.4 mg/dL [facility] Protein, sr 6.8 6.1 - 8.1 g/dL [facility] Albumin 4.1 3.6 - 5.1 g/dL [facility] GLOBULIN 2.7 1.9 - 3.7 g/dL (calc) [facility] Alb/glob ratio 1.5 1.0 - 2.5 (calc) [facility] Bilirubin, total 0.3 0.2 - 1.2 mg/dL [facility] Alk phos 64 37 - 153 U/L [facility] AST 18 10 - 35 U/L [facility] ALT (SGPT) 12 6 - 29 U/L [facility] Blood 06/25/2025 9:26 AM CDT 06/25/2025 9:27 AM CDT us Rizwana VELASQUEZ LAB BLOOD ORDER MAGUI Final Result [facility] [address] [place] [address] * US Duplex Scan of Aorta; Inferior Vena Cava, Iliac, Complete (05/06/2025 9:08 AM CDT) Anatomical Region Laterality Modality Vascular Ultrasound 05/06/2025 8:08 AM CDT Narrative 05/06/2025 9:25 AM CDT [facility] - Department of Vascular Surgery, Vascular Laboratory [address] [place] [address] Abdominal Aortic Duplex Ultrasound Report Patient Name: LAVERN ROWE : 1955 Study Date: 05/06/2025 8:08:40 AM Gender: F Tech: Location: [facility] Provider: TRUMAN JORGE Quality: Adequate Order Provider: TRUMAN JORGE PROCEDURES: Arterial Report: Abdominal Aorta Stent Graft Duplex. INDICATIONS: I71.43 Infrarenal abdominal aortic aneurysm, without rupture. MEASUREMENTS: Aorta Value Units Arteries Value Units Prox (Celiac Level) A/P 1.96 cm RT EIA Diameter Prox 0.75 cm Prox (Celiac Level) Trans 1.66 cm RT EIA Diameter Mid 0.61 cm Prox PSV 44.00 cm/sec RT EIA Diameter Dist 0.69 cm Mid (Juxtarenal) Trans 2.17 cm RT EIA PSV Prox 166.00 cm/s Mid (Infrarenal) A/P 2.34 cm RT EIA PSV Mid 150.00 cm/s Mid PSV 33.00 cm/sec RT EIA PSV Dist 146.00 cm/s Distal (Infrarenal) A/P 4.70 cm LT EIA Diameter Prox 0.79 cm Distal (Infrarenal) Trans 5.08 cm LT EIA Diameter Mid 0.79 cm [place] Aorta Residual Sac Diameter (Post EVAR) 5.08 cm LT EIA Diameter Dist 0.55 cm RT Iliac Limb Prox 64.00 cm/s LT EIA PSV Prox 114.00 cm/s RT Iliac Limb Mid 125.00 cm/s LT EIA PSV Mid 115.00 cm/s RT Iliac Limb Dist 112.00 cm/s LT EIA PSV Dist 128.00 cm/s LT Iliac Limb Prox 67.00 cm/s Superior Mesenteric A PSV 210.00 cm/s LT Iliac Limb Mid 85.00 cm/s Celiac Artery PSV 119.00 cm/s LT Iliac Limb Dist 142.00 cm/s RT Prox Renal Artery PSV 104.00 cm/s LT Prox Renal Artery PSV 144.00 cm/s Right ENFORCEMENT MANAGER 149.00 cm/s Left ENFORCEMENT MANAGER 156.00 cm/s Aorta Value Units Arteries Value Units FINDINGS: Performing Configurator: Andie Engel RVT. Study Quality: Adequate. Abdominal Aorta: Abdominal aorta stent graft body and bilateral limbs are patent. Largest size of the residual excluded tanana aorta sac is 4.7 x 5.08 cm. Unable to visualize common iliac arteries due to bowel gas There is no evidence of endoleak. Bilateral External Iliac Artery waveforms are multiphasic. Provider Notification: Results called on the above date to Truman Jorge MD. Time called 09:00. CONCLUSIONS: 1. Largest size of the residual excluded tanana aorta sac is 4.7 x 5.08 cm. There is no evidence of endoleak. HISTORY: 03/28/24 EVAR 04/18/24 Left common femoral endarterectomy with patch angioplasty. Thrombectomy of left external iliac artery, left common iliac artery and left limb of the EVAR graft. Kissing stent angioplasty of aortic bifurcation AAA, HLD, COPD, Smoker. PREVIOUS STUDIES: No previous studies for comparison. No endoleak per CTA; AAA 4.6 cm on 09/17/24. DISCLAIMER: The study images and the final report will be retained in the patient chart by the Vascular Laboratory for the legally required time period. This chart constitutes the legal record of any testing performed. ATTESTATION: I have reviewed and interpreted the pertinent images and measurements of this study. I attest to the conclusions in the final report that is provided above. Electronically Signed By: Truman CONSTANTINO OR 05/06/2025 9:24:54 AM CDT Procedure Note Truman Jorge MD - 05/06/2025 [facility] - Department of Vascular Surgery,Vascular Laboratory [address] [place] [address] Abdominal Aortic Duplex Ultrasound Report Patient Name: LAVERN ROWE : 1955 Study Date: 05/06/2025 8:08:40 AM Gender: F Tech: Location: [facility] Provider: TRUMAN JORGE Quality: Adequate Order Provider: TRUMAN JORGE PROCEDURES: Arterial Report: Abdominal Aorta Stent Graft Duplex. INDICATIONS: I71.43 Infrarenal abdominal aortic aneurysm, without rupture. MEASUREMENTS: Aorta Value Units Arteries Value Units Prox (Celiac Level) A/P 1.96 cm RT EIA Diameter Prox 0.75 cm Prox (Celiac Level) Trans 1.66 cm RT EIA Diameter Mid 0.61 cm Prox PSV 44.00 cm/sec RT EIA Diameter Dist 0.69 cm Mid (Juxtarenal) Trans 2.17 cm RT EIA PSV Prox 166.00 cm/s Mid (Infrarenal) A/P 2.34 cm RT EIA PSV Mid 150.00 cm/s Mid PSV 33.00 cm/sec RT EIA PSV Dist 146.00 cm/s Distal (Infrarenal) A/P 4.70 cm LT EIA Diameter Prox 0.79 cm Distal (Infrarenal) Trans 5.08 cm LT EIA Diameter Mid 0.79 cm [place] Aorta Residual Sac Diameter (Post EVAR) 5.08 cm LT EIA DiameterDist 0.55 cm RT Iliac Limb Prox 64.00 cm/s LT EIA PSV Prox 114.00 cm/s RT Iliac Limb Mid 125.00 cm/s LT EIA PSV Mid 115.00 cm/s RT Iliac Limb Dist 112.00 cm/s LT EIA PSV Dist 128.00 cm/s LT Iliac Limb Prox 67.00 cm/s Superior Mesenteric A PSV 210.00 cm/s LT Iliac Limb Mid 85.00 cm/s Celiac Artery PSV 119.00 cm/s LT Iliac Limb Dist 142.00 cm/s RT Prox Renal Artery PSV 104.00 cm/s LT Prox Renal Artery PSV 144.00 cm/s Right ENFORCEMENT MANAGER 149.00 cm/s Left ENFORCEMENT MANAGER 156.00 cm/s Aorta Value Units Arteries Value Units FINDINGS: Performing Configurator: Andie Engel RVT. Study Quality: Adequate. Abdominal Aorta: Abdominal aorta stent graft body and bilateral limbs are patent. Largest size of the residual excluded tanana aorta sac is 4.7 x 5.08 cm. Unable to visualize common iliac arteries due to bowel gas There is no evidence of endoleak. Bilateral External Iliac Artery waveforms are multiphasic. Provider Notification: Results called on the above date to Truman Jorge MD. Time [id number]. CONCLUSIONS: 1. Largest size of the residual excluded tanana aorta sac is 4.7 x 5.08cm. There is no evidence of endoleak. HISTORY: 03/28/24 EVAR 04/18/24 Left common femoral endarterectomy with patch angioplasty.Thrombectomy of left external iliac artery, left common iliac artery and left limb of the EVARgraft. Kissing stent angioplasty of aortic bifurcation AAA, HLD, COPD, Smoker. PREVIOUS STUDIES: No previous studies for comparison. No endoleak per CTA; AAA 4.6 cm on 09/17/24. DISCLAIMER: The study images and the final report will be retained in the patientchart by the Vascular Laboratory for the legally required time period. This chartconstitutes the legal record of any testing performed. ATTESTATION: I have reviewed and interpreted the pertinent images and measurements ofthis study. I attest to the conclusions in the final report that is provided above. Electronically Signed By: Truman CONSTANTINO OR 05/06/2025 9:24:54 AM CDT us Truman Jorge MD IMG US PROCEDURES Final Resu lt * US MARIAH (05/06/2025 9:08 AM CDT) Anatomical Region Laterality Modality Vascular N/A Ultrasound 05/06/2025 7:54 AM CDT Narrative 05/06/2025 9:25 AM CDT [facility] - Department of Vascular Surgery, Vascular Laboratory [address] [place] [address] Lower Extremity Arterial Doppler Report Patient Name: LAVERN ROWE : 1955 Study Date: 05/06/2025 7:54:00 AM Gender: F Tech: Andie Engel RVT Location: [facility] Provider: TRUMAN JORGE Quality: Adequate Order Provider: TRUMAN JORGE PROCEDURES: Arterial Report: Ankle - Brachial Index Doppler exam. INDICATIONS: I70.213 Atherosclerosis of tanana arteries of extremities with intermittent claudication, bilateral legs. MEASUREMENTS: Right Value Units Left Value Units Rt Brachial Pressure 160 mmHg Lt Brachial Pressure 155 mmHg Rt SPECIAL CLIENT BUS DRIVER Pressure 180 mmHg Lt SPECIAL CLIENT BUS DRIVER Pressure 182 mmHg Rt DPA Pressure 165 mmHg Lt DPA Pressure 149 mmHg Rt 1st Digit Pressure 103 mmHg Lt 1st Digit Pressure 96 mmHg Rt PT MARIAH Resting 1.13 Lt PT MARIAH Resting 1.14 Rt AT MARIAH Resting 1.03 Lt AT MARIAH Resting 0.93 Rt Digit/Arm Index 0.64 Lt Digit/Arm Index 0.6 Right Value Units Left Value Units FINDINGS: Performing Configurator: Andie Engel RVT. Right Posterior Tibial Artery Analysis: The posterior tibial waveform is multiphasic. Right Anterior Tibial Artery Analysis: The anterior tibial waveform is multiphasic. Right Digits: Normal right digit pressure and waveform. Left Posterior Tibial Artery Analysis: The posterior tibial waveform is multiphasic. Left Anterior Tibial Artery Analysis: The anterior tibial waveform is multiphasic. Left Digits: Normal left digit pressure and waveform. CONCLUSIONS: 1. The above listed Ankle/Brachial Indices at rest are within normal limits bilaterally (for reference, normal resting MARIAH is 0.9 to 1.4; MARIAH >1.4 due to non- compressible arteries is not diagnostic). 2. Bilateral Digit/Arm Indices are within normal limits (for reference, normal TWYLA is >0.6). HISTORY: 03/28/24 EVAR 04/18/24 Left common femoral endarterectomy with patch angioplasty. Thrombectomy of left external iliac artery, left common iliac artery and left limb of the EVAR graft. Kissing stent angioplasty of aortic bifurcation AAA, HLD, COPD, Smoker. PREVIOUS STUDIES: Previous study on 06/11/24 R= 1.0; L= 1.02. DISCLAIMER: The study images and the final report will be retained in the patient chart by the Vascular Laboratory for the legally required time period. This chart constitutes the legal record of any testing performed. ATTESTATION: I have reviewed and interpreted the pertinent images and measurements of this study. I attest to the conclusions in the final report that is provided above. Electronically Signed By: Truman CONSTANTINO OR 05/06/2025 9:25:07 AM CDT Procedure Note Truman Jorge MD - 05/06/2025 [facility] - Department of Vascular Surgery,Vascular Laboratory [address] [place] [address] Lower Extremity Arterial Doppler Report Patient Name: LAVERN ROWE : 1955 Study Date: 05/06/2025 7:54:00 AM Gender: F Tech: Anide Engel Daly Location: [facility] Provider: TRUMAN JORGE Quality: Adequate Order Provider: TRUMAN JORGE PROCEDURES: Arterial Report: Ankle - Brachial Index Doppler exam. INDICATIONS: I70.213 Atherosclerosis of tanana arteries of extremities withintermittent claudication, bilateral legs. MEASUREMENTS: Right Value Units Left Value Units Rt Brachial Pressure 160 mmHg Lt Brachial Pressure 155 mmHg Rt SPECIAL CLIENT BUS DRIVER Pressure 180 mmHg Lt SPECIAL CLIENT BUS DRIVER Pressure 182 mmHg Rt DPA Pressure 165 mmHg Lt DPA Pressure 149 mmHg Rt 1st Digit Pressure 103 mmHg Lt 1st Digit Pressure 96 mmHg Rt PT MARIAH Resting 1.13 Lt PT MARIAH Resting 1.14 Rt AT MARIAH Resting 1.03 Lt AT MARIAH Resting 0.93 Rt Digit/Arm Index 0.64 Lt Digit/Arm Index 0.6 Right Value Units Left Value Units FINDINGS: Performing Configurator: Andie Engel RVT. Right Posterior Tibial Artery Analysis: The posterior tibial waveform is multiphasic. Right Anterior Tibial Artery Analysis: The anterior tibial waveform is multiphasic. Right Digits: Normal right digit pressure and waveform. Left Posterior Tibial Artery Analysis: The posterior tibial waveform is multiphasic. Left Anterior Tibial Artery Analysis: The anterior tibial waveform is multiphasic. Left Digits: Normal left digit pressure and waveform. CONCLUSIONS: 1. The above listed Ankle/Brachial Indices at rest are within normallimits bilaterally (for reference, normal resting MARIAH is 0.9 to 1.4; MARIAH >1.4 due tonon- compressible arteries is not diagnostic). 2. Bilateral Digit/Arm Indices are within normal limits (for reference,normal TWYLA is >0.6). HISTORY: 03/28/24 EVAR 04/18/24 Left common femoral endarterectomy with patch angioplasty.Thrombectomy of left external iliac artery, left common iliac artery and left limb of the EVARgraft. Kissing stent angioplasty of aortic bifurcation AAA, HLD, COPD, Smoker. PREVIOUS STUDIES: Previous study on 06/11/24 R= 1.0; L= 1.02. DISCLAIMER: The study images and the final report will be retained in the patientchart by the Vascular Laboratory for the legally required time period. This chartconstitutes the legal record of any testing performed. ATTESTATION: I have reviewed and interpreted the pertinent images and measurements ofthis study. I attest to the conclusions in the final report that is provided above. Electronically Signed By: Truman CONSTANTINO OR 05/06/2025 9:25:07 AM CDT us Truman Jorge MD IM US PROCEDURES Final Resu lt * Screening Mammogram Bilateral W Mahesh (03/16/2024 8:58 AM CDT) Anatomical Region Laterality Modality Breast Bilateral Mammography Impressions 03/20/2024 10:53 AM CDT BI-RADS ATLAS category (overall): 1 - Negative There is no mammographic evidence of malignancy. A 1 year screening mammogram is recommended. The patient has been or will be contacted. We recommend annual screening mammography for women at average risk of breast cancer beginning at age 40, based on guidelines of the [employer] (ACR Practice Parameter for the Performance of Screening and Diagnostic Mammography) and [place]. For women with and elevated risk of breast cancer, please refer to the ACR Practice Parameter for specific screening recommendations. The patient will be entered into a reminder system with a target due date of 1 year for her next screening exam. Narrative 03/20/2024 10:53 AM CDT Screening Mammogram Bilateral W Mahesh: 03/16/24 The study was acquired using full field digital technology and interpreted from soft copy. 2D digital mammographic views, as well as 3D digital tomosynthesis were performed in the CC and MLO projections. CLINICAL: Breast cancer screening by mammogram. No relevant medical history has been documented for this patient. No known family history of breast cancer. COMPARISONS: 09/04/2022 Screening Mammogram Bilateral W Mahesh 09/04/2022 Breast Imaging Screening Outside Reference 07/29/2016 Breast Imaging Screening Outside Reference BREAST TISSUE: The breasts have scattered areas of fibroglandular density. FINDINGS: There is no new suspicious finding in either breast on mammogram. us [facility] IMG MAMMO PROCEDURES Final Result * COLONOSCOPY (02/16/2023 8:54 AM CDT) Anatomical Region Laterality Modality Other Narrative Procedure Note Kimberly Godwin MD - 02/16/2023 8:54 AM CDT [facility] ENDOSCOPY Patient Name: Lavern Rowe Procedure Date: 02/16/2023 8:54 AM Date of : 1955 Admit Type: Outpatient Age: 68 Gender: Female Attending MD: Kimberly Godwin M.D. Room: [facility] ENDOSCOPY ROOM 05 Note Status: Finalized Procedure: Colonoscopy Indications: Positive Cologuard test Referring MD: Providers: Kimberly Godwin M.D. Medicines: See the Anesthesia note for documentation of the administered medications Complications: No immediate complications. Estimated Blood Loss: Estimated blood loss was minimal. Procedure: The benefits, risks and alternatives of theprocedure and sedation were discussed and informed consentwas obtained. All questions were answered. Please referto the signed informed consent document in the medical record. The scope was passed under direct vision.The PCF-H180AL colonoscope was introduced through theanus and advanced to the sigmoid colon. There was mucosa folded on itself which was unable to be navigated.The CF-H180AL colonoscope was introduced through theanus and advanced to the cecum, identified byappendiceal orifice and ileocecal valve. The colonoscopy was unusually difficult due to a redundant colon. Successful completion of the procedure was aided by using manual pressure and withdrawing the scope and replacing with the adult endoscope. The patient tolerated the procedure well. The quality of thebowel preparation was adequate. Findings: The perianal and digital rectal examinations were normal. Diverticula were found in the entire colon. The terminal ileum appeared normal. Internal hemorrhoids were found during retroflexion. The hemorrhoids were small. Impression: - Diverticulosis in the entire examined colon. - The examined portion of the ileum was normal. - Internal hemorrhoids. - No specimens collected. Recommendation: - Repeat colonoscopy in 10 years for screening purposes. Kimberly Godwin M.D. Kimberly Godwin M.D. 02/16/2023 9:58:49 AM . Number of Addenda: 0 Note Initiated On: 02/16/2023 8:54 AM Recognized by the [place] [employer] for promoting quality in endoscopy Kimberly Godwin MD ENDOSCOPY PROCEDURES Final Resul t * CT Lung Cancer Screening (02/15/2022) Anatomical Region Laterality Modality Chest N/A Computed Tomogra phy [facility]AS[facility] IMG CT PROCEDURES Final Re sult from Last 3 Months or Most Recently Relevant to Health Maintenance Insurance MEDICARE IDPA MEDICARE IDPA MEDICARE IDMS MEDICARE IDPA Advance Directives For more information, please contact: [phone] Documents on File Type Date Recorded Patient Fudger Expl anation ADVANCE DIRECTIVE 03/28/2024 11:15 AM Kieran Flores er of [employer] * Full Code (Latest Code Status on File) Date Activated Date Inactivated Comments 04/19/2024 3:18 AM 04/22/2024 4:14 PM * Full Code Date Activated Date Inactivated Comments 03/28/2024 5:07 PM 03/29/2024 5:49 PM Healthcare Agents on File Name Relationship Healthcare Agent Count [facility]cludes [facility] Communication Kieran Rowe [facility] Agent Care Teams [employer] Carpenter Relationship Specialty Start Date End Date Tigist Schroeder PA [address] [facility] [address] [place] [address] PCP - General Internal Medicine 07/19/19 Arian Robertson MD [address] [place] [address] Consulting Physician Rheumatology 07/19/22 [place] [address] [place] [address] Consulting Physician Vascular Surgery 03/29/24
== END 2025-08-05 15:08 | disposition home or self-care (01) ==
LOC: ANHFOHIMG 15:09
PROVIDERS: PCP Physician Assistant; Visit Provider Physician Assistant Medical
DX: M81.0 Age-related osteoporosis without current pathological fracture (principal); M85.88 Other specified disorders of bone density and structure, other site; M85.852 Other specified disorders of bone density and structure, left thigh; M85.851 Other specified disorders of bone density and structure, right thigh
CPT/HCPCS: 77080